=== PATIENT | female | born 1965 | race Caucasian/White ===

== ENCOUNTER → 2019-08-31 16:01 | Outpatient (CLI) | payer OTHER, SELFPAY ==
--- NOTE | ~2019-08-31 | XR_ITS ---
XR_CERV2-3V_CR INDICATION: Cervicalgia TECHNIQUE: 4 views of the cervical spine. FINDINGS: No prior studies for comparison. The cervical spine is visualized to the cervicothoracic junction. There is no prevertebral soft tiss ue swelling, listhesis, or loss of vertebral body height. Intervertebral disc spaces are normal. Th e osseous central canal is patent. No displaced cervical spine fractures are identified. IMPRESSION: 1. No significant osseous abnormality of the cervical spine. Reviewed, dictated and finalized at location A.
== END ==
PROVIDERS: PCP Family Medicine; Visit Provider Physician Assistant
DX: M54.2 Cervicalgia (principal)
CPT/HCPCS: 72040

== ENCOUNTER → 2020-02-23 13:30 | Outpatient (CLI) | payer OTHER, SELFPAY ==
--- NOTE | ~2020-02-23 | XR_ITS ---
XR foot RT 2V DATE: 02/23/2020 13:44 INDICATION: Right foot pain TECHNIQUE: 4 views COMPARISON: None FINDINGS: Mild hallux valgus and bunion deformity. No fracture or dislocation, periosteal reaction or bone destruction. Mild posterior calcaneal enthesopathy. IMPRESSION: Mild posterior calcaneal enthesopathy Mild hallux valgus and bunion deformity Reviewed, dictated and finalized at location A.
== END ==
PROVIDERS: PCP Family Medicine; Visit Provider Physician Assistant
DX: M79.671 Pain in right foot (principal); M77.31 Calcaneal spur, right foot; M20.11 Hallux valgus (acquired), right foot; M21.611 Bunion of right foot
CPT/HCPCS: 73620

== ENCOUNTER 2020-04-10 10:20 | Outpatient (CLI) | payer OTHER, SELFPAY ==
--- NOTE | ~2020-04-10 | MR_ITS ---
EXAMINATION: MR foot RT wo con DATE: 04/10/2020 11:25 INDICATION: Right foot pain TECHNIQUE: Magnetic resonance imaging (MRI) of the right fore/mid foot was performed without intraven ous contrast. Sequences included sagittal T1-weighted FSE, sagittal fluid sensitive FSE STIR, coronal PD-weighted FS FSE, coronal T1-weighted FSE, axial PD-weighted FS FSE, and axial PD-weighted FSE. COMPARISON: Right foot radiographs dated 02/23/2020 FINDINGS: Mild hallux valgus with mild hypertrophic change and edema along the medial head of the first metatar rosalind consistent with bunion formation. Otherwise normal marrow signal with no fracture, reactive edema or pathologic marrow replacing process. Mild osteoarthritis at the first metatarsophalangeal joint. Small amount of fluid at the first-third intermetatarsal bursa which remains within normal limits. 4 x 3 x 2 mm ganglion cyst along the plantar/lateral aspect of the head of the second metatarsal. Physi ologic amount fluid in the joint spaces. No other abnormal fluid collections. The collateral ligament complexes at the metatarsophalangeal and interphalangeal joints as well as the flexor and extensor t endons are normal. Visualized intrinsic musculature of the foot is normal. IMPRESSION: 1. Mild hallux valgus with mild bunion and mild osteoarthritis at the first metatarsophalangeal joint . Reviewed, dictated and finalized at location A. IMPRESSION: 1. Mild hallux valgus with mild bunion and mild osteoarthritis at the first met atarsophalangeal joint.
== END 2020-04-10 10:21 | disposition home or self-care (01) ==
PROVIDERS: PCP Family Medicine; Visit Provider Family Medicine
DX: M79.671 Pain in right foot (principal); M20.11 Hallux valgus (acquired), right foot; M19.071 Primary osteoarthritis, right ankle and foot
CPT/HCPCS: 73718

== ENCOUNTER 2020-07-23 12:19 | Outpatient (CLI) | payer OTHER, SELFPAY ==
--- NOTE | ~2020-07-23 | MMUS_ITS ---
EXAMINATION: MM diagnostic [place] BI w pepe, US breast RT limited HISTORY: Palpable lump in the upper outer quadrant of the right breast. TECHNIQUE: Craniocaudal, mediolateral, and mediolateral oblique 3-D tomosynthesis images of the right breast were performed and synthetic 2-D images were generated. CAD analysis was submitted and interp reted. High resolution limited right breast ultrasound was performed. COMPARISON: 01/20/2019, 11/28/2015, 11/20/2015, 09/28/2014 BREAST PARENCHYMAL COMPOSITION: There are scattered areas of fibroglandular density. FINDINGS: MAMMOGRAPHIC FINDINGS: Left breast: There are stable obscured low density masses in the upper outer quadrant of the breast. There has been no suspicious interval change. No suspicious architectural distortion or calcification are identified. Right breast: There are obscured low density masses in the middle and posterior third of the breast a t the 12:00 location which have an appearance similar to prior mammograms. No definite correlate is i dentified for the reported palpable abnormality of concern. ULTRASOUND: There is no evidence of focal abnormal solid or cystic lesion in the vicinity of the reported palpabl e abnormality of concern. Cysts and clusters of cysts are noted at the 9:00 and 12:00 locations. IMPRESSION: 1. No suspicious mammographic or sonographic correlate is identified for the reported palpable abnorm ality of concern. Further evaluation at this time should be based on clinical assessment. Continued f ollow-up physical examination is recommended. 2. Recommend routine screening mammography in one year. BI-RADS Category 2: Benign finding(s). Reviewed, dictated and finalized at location A. 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 No suspicious mammographic or sonographic correlate is identified for the re ported palpable abnormality of concern. Further evaluation at this time should be based on clinical assessment. Continued follow-up physical examination is re commended. 2. Recommend routine screening mammography in one year. BI-RADS Category 2: Benign finding(s).
== END 2020-07-23 12:20 | disposition home or self-care (01) ==
LOC: ANHIMG 12:22
PROVIDERS: PCP Family Medicine; Visit Provider Physician Assistant
DX: R92.8 Other abnormal and inconclusive findings on diagnostic imaging of breast (principal)
CPT/HCPCS: 76642; 77062; 77066; G0279

== ENCOUNTER 2021-05-05 17:24 | Emergency (ER) | payer OTHER, MEDICAID, SELFPAY ==
--- NOTE | ~2021-05-05 | XR_ITS ---
EXAMINATION: XR chest 2V DATE: 05/05/2021 18:41 INDICATION: Chest pain TECHNIQUE: PA and lateral views of the chest were obtained. COMPARISON: None FINDINGS: The lungs are clear with no focal airspace opacities, pulmonary edema, pleural effusion or pneumothor ax. The cardiomediastinal silhouette is normal. Mild thoracic spondylosis. IMPRESSION: 1. No acute cardiopulmonary disease. Reviewed, dictated and finalized at location A. RN HOSPICE
--- NOTE | 2021-05-05 17:54 | ECG_ITS ---
Measurements Intervals [place] Rate: 69 P: 37 TX: 156 QRS: -3 QRSD: 145 T: 24 QT: 454 QTc: 488 Interpretive Statements SINUS RHYTHM RIGHT BUNDLE BRANCH BLOCK ABNORMAL ECG Electronically Signed On 05-05-2021 20:33:10 PARAMEDIC SUPERVISOR by Dennis Eid D.O.
[2021-05-05 18:28] VITALS: BP 155/87; PULSE 73; RESP 18; TEMP 36.6; O2SAT 100
[2021-05-05 18:46] LABS: Basophils Percent Auto 0.6 % (0.2-1.2); Eosinophils Absolute Auto 0.2 K/mm3 (0-0.3); Eosinophils Percent Auto 4.2 % (0-4.4); Hematocrit 38.4 % (37.0-47.0); Hemoglobin 12.9 g/dL (12.0-15.0); Immature Granulocyte Absolute 0.01 K/mm3 (0.00-0.031); Immature Granulocyte Percent A 0.2 % (0-0.5); Lymphocytes Absolute Auto 1.25 K/mm3 (0.9-3.2); Lymphocytes Percent Auto 23.6 % (18.3-44.2); Mean Corpuscular HGB Conc 33.6 g/dl (32-36); Mean Corpuscular Hemoglobin 30.1 pg (26-34); Mean Corpuscular Volume 89.5 fl (80-100); Mean Platelet Volume 9.1 fl (7.4-10.4); Monocytes Absolute Auto 0.4 K/mm3 (0.1-0.6); Monocytes Percent Auto 8.1 % (2.6-8.5); Neutrophils Absolute Auto 3.4 K/mm3 (1.3-6.7); Neutrophils Percent Auto 63.3 % (45.5-73.1); Platelet Count Result 295 k/mm3 (150-375); Red Blood Count 4.29 M/mm3 (4.2-5.4); Red Cell Distribution Width 13.3 % (11.5-14.5); White Blood Count 5.3 K/mm3 (4.5-10.0)
[2021-05-05 18:56] LABS: Sodium 137 mmol/L (137-145)
[2021-05-05 18:59] LABS: Anion Gap 7 mmol/L (8-16); Blood Urea Nitrogen 23 mg/dL (7-17); Calcium 9.3 mg/dL (8.4-10.2); Carbon Dioxide 30 mmol/L (22-30); Chloride 100 mmol/L (98-107); Estimated CRCL calculation 59 ml/min; Estimated Glomerular Filt Rate > 60; Glucose 97 mg/dL (65-110); Potassium 3.2 mmol/L (3.4-5.0)
[2021-05-05 19:06] LABS: INR 0.9; Prothrombin Time 12.2 Seconds (11.1-14.7)
[2021-05-05 19:07] LABS: Partial Thromboplastin Time 24.7 SECONDS (22.3-36.8)
[2021-05-05 19:09] LABS: Troponin I < 0.012 ng/mL (0.000-0.034)
[2021-05-05 21:40] VITALS: BP 155/87; PULSE 73; RESP 18; TEMP 36.3; O2SAT 100
--- NOTE | 2021-05-05 21:58 | ED.CHESTPAIN ---
HPI - Chest Pain General Chief Complaint: Chest Pain Stated Complaint: cp Time Seen by Provider: 05/05/21 21:38 Source: patient Mode of arrival: ambulatory Limitations: no limitations History of Present Illness HPI narrative: Patient is a 55-year-old female complaining of chest pain, midsternal, intermittent, 6 out of 10, currently 0 out of 10, started 3 days ago. Patient denies any shortness of breath, abdominal pain, nausea, vomiting, diaphoresis, fever or chills. Related Data Home Medications Medication Instructions Recorded Confirmed estradiol 0.0375 mg/24 hr 1 patch TRANSDERM 2XW 08/31/19 02/07/21 semiweekly transdermal patch mecobalamin (vitamin B12) 1,000 1,000 mcg SUBLINGUAL DAILY 02/11/21 mcg disintegrating tablet,sublingual Allergies Allergy/AdvReac Type Severity Reaction Status Date / Time erythromycin base Allergy Unknown Cramping Verified 05/05/21 21:41 of the Muscles Review of Systems Review of Systems: All systems reviewed & are unremarkable except as noted in HPI and below Constitutional: Constitutional: Denies body ache(s), Denies chills, Denies excessive sweating, Denies fatigue, Denies fever(s), Denies headache(s), Denies lethargy, Denies malaise, Denies weakness and Denies weight loss Eyes: Eyes: Denies blurry vision, Denies change in vision and Denies loss of vision ENT: Denies dizziness, Denies ear discharge, Denies headache(s), Denies lip swelling, Denies epistaxis, Denies nasal congestion, Denies neck pain, Denies throat swelling and Denies tongue swelling Cardiovascular: Cardiovascular: Denies diaphoresis, Denies rapid heart rate, Denies edema, Denies irregular heart rhythm, Denies lightheadedness, Denies palpitations, Denies dyspnea and Denies dyspnea on exertion Respiratory: Respiratory: Denies chest congestion, Denies cough, Denies hemoptysis, Denies dyspnea and Denies dyspnea on exertion Gastrointestinal: Gastrointestinal: Denies abdominal pain, Denies melena, Denies hematochezia, Denies diarrhea, Denies nausea, Denies vomiting and Denies hematemesis Musculoskeletal: Musculoskeletal: Denies abnormal gait, Denies deformity, Denies joint swelling, Denies limited range of motion, Denies neck pain and Denies numbness Neurologic: Denies Abnormal speech present, Denies abnormal gait, Denies confusion, Denies dizziness, Denies headache(s), Denies focal weakness, Denies loss of vision, Denies numbness, Denies Other visual disturbances, Denies Sensory deficit (Neuro) and Denies weakness Psychiatric: Psychiatric: Denies confusion, Denies depression, Denies auditory hallucinations, Denies homicidal ideation and Denies suicidal ideation Endocrine: Endocrine: Denies cold intolerance, Denies excessive sweating, Denies fatigue, Denies heat intolerance and Denies palpitations Hematologic/Lymphatic: Hematologic/Lymphatic: Denies easy bleeding and Denies easy bruising Allergic/Immunologic: Allergic/Immunologic: Denies lip swelling, Denies throat swelling and Denies tongue swelling PMFSH Past Medical History Medical History Celiac disease Hx of human papillomavirus infection Prolapse of vaginal cuff after hysterectomy (~01/20/20) Surgical History Surgical History H/O: hysterectomy (~2003) Only uterus removed Family History Family History Mother Family history of obesity, Onset Age: 54 Hypertension, Onset Age: 54 Asthma, Onset Age: 54 Father Acute myocardial infarction, Onset Age: 65 Other Family history of lupus erythematosus Social History Social History Alcohol intake: current Drinks per week: 2 Alcohol use details: doesn't even do 1 drink a week occasionaly Exam Const: General: cooperative, healthy appearing
[2021-05-05 22:50] VITALS: BP 149/93; PULSE 70; RESP 16; O2SAT 99
[2021-05-05 23:04] LABS: Troponin I < 0.012 ng/mL (0.000-0.034)
[2021-05-05] MEDS: POTASSIUM CHLORIDE 20 MEQ TABLET PO (23:45)
[2021-05-05 23:50] VITALS: BP 147/92; PULSE 65; RESP 14; O2SAT 100
== END 2021-05-05 23:55 | disposition home or self-care (01) ==
PROVIDERS: Emergency Medicine; Emergency Provider Emergency Medicine; PCP Family Medicine
DX: R07.89 Other chest pain (principal); K90.0 Celiac disease; I45.10 Unspecified right bundle-branch block
CPT/HCPCS: 36415; 71046; 80048; 84484; 85025; 85610; 85730; 93005; 99284; A9270

== ENCOUNTER → 2021-05-27 16:58 | Outpatient (CLI) | payer OTHER, MEDICAID, SELFPAY ==
--- NOTE | ~2021-05-27 | XR_ITS ---
EXAMINATION: XR foot RT min 3V DATE: 05/27/2021 17:12 INDICATION: Right foot pain TECHNIQUE: Dorsoplantar, lateral, and 2 oblique views of the right foot were obtained. COMPARISON: 02/23/2020 FINDINGS: An os peroneum is noted. There is mild irregularity at the distal margin of the os peroneum with associated increasing heterotopic ossification. Mild osteoarthritis is noted in multiple interp halangeal joints as well as at the first metatarsophalangeal joint. No acute fracture is identified. A posterior calcaneal enthesophyte is noted. IMPRESSION: 1. Mild irregularity at the distal aspect of the os peroneum with associated increasing heterotopic o ssification suggestive of peroneus longus tendon pathology, tendinosis versus tear. Recommend clinica l correlation for tenderness proximal to the base of the fifth metatarsal. Reviewed, dictated and finalized at location A. 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 Mild irregularity at the distal aspect of the os peroneum with associated in creasing heterotopic ossification suggestive of peroneus longus tendon patholog y, tendinosis versus tear. Recommend clinical correlation for tenderness proxim al to the base of the fifth metatarsal.
== END ==
PROVIDERS: PCP Family Medicine; Visit Provider Family Medicine
DX: M19.071 Primary osteoarthritis, right ankle and foot (principal); M79.671 Pain in right foot
CPT/HCPCS: 73630

== ENCOUNTER 2021-11-11 17:21 | Outpatient (CLI) | payer OTHER, MEDICAID, SELFPAY ==
--- NOTE | ~2021-11-11 | MM_ITS ---
EXAMINATION: MM screening [place] BI w pepe HISTORY: Screening mammogram TECHNIQUE: Craniocaudal and mediolateral oblique 3-D tomosynthesis images were obtained and synthetic 2-D images were generated. CAD analysis was submitted and interpreted. COMPARISON: July 23, 2020 diagnostic bilateral mammogram and limited right breast ultrasound January 20, 2019 bilateral screening mammogram November 28, 2015 diagnostic left mammogram and limited left breast ultrasound November 20, 2015 bilateral screening mammogram BREAST PARENCHYMAL COMPOSITION: There are scattered areas of fibroglandular density. FINDINGS: Biopsy marker on the left; history of prior benign left breast biopsy. Stable fibroglandular asymmetry since 11/20/2015. There is a 4.9 x 8.5 mm circumscribed mass in the posterior lower inner left breast. Diagnostic left mammogram and left breast ultrasound examination are recommended. Otherwise there is no evidence of suspicious mass, calcification, or architectural distortion to sugg est malignancy in either breast. There has been no suspicious interval change. IMPRESSION: 1. 4.9 x 8.5 mm mass in posterior lower inner left breast 2. Diagnostic left mammogram and left breast ultrasound examination are recommended BI-RADS Category 0: Incomplete: Needs additional imaging evaluation. Reviewed, dictated and finalized at location A. IMPRESSION: 1. 4.9 x 8.5 mm mass in posterior lower inner left breast 2. Diagnostic left mammogram and left breast ultrasound examination are recomme nded BI-RADS Category 0: Incomplete: Needs additional imaging evaluation.
== END 2021-11-11 17:22 | disposition home or self-care (01) ==
LOC: ANHIMG 17:22
PROVIDERS: PCP Family Medicine; Visit Provider Family Medicine
DX: Z12.31 Encounter for screening mammogram for malignant neoplasm of breast (principal); R92.8 Other abnormal and inconclusive findings on diagnostic imaging of breast
CPT/HCPCS: 77063; 77067

== ENCOUNTER → 2021-11-28 07:45 | Outpatient (CLI) | payer OTHER, MEDICAID, SELFPAY ==
--- NOTE | ~2021-11-28 | MMUS_ITS ---
EXAMINATION: MM diagnostic [place] LT w pepe, US breast LT limited HISTORY: Left breast mass on screening mammogram TECHNIQUE: Additional 3-D tomosynthesis images of the left breast were performed and synthetic 2-D im ages were generated. CAD analysis was submitted and interpreted. High resolution limited left breast ultrasound was performed. COMPARISON: 11/11/2021, 07/23/2020, 01/20/2019, 11/20/2015 FINDINGS: MAMMOGRAPHIC FINDINGS: There is a 9 mm x 4 mm oval, circumscribed, low-density mass in the middle third of the inner breast at the 9:00 location 7 cm from the nipple. ULTRASOUND: There is a 7 mm cyst at the 9:00 location 7 cm from the nipple corresponding to the mammographic find ing in question. There is a 3 mm round, circumscribed, hypoechoic mass with no posterior features or internal vascularity at the 9:00 location 4 cm from the nipple. An 11 mm x 3 mm mass with similar son ographic features is seen at the 9:00 location near the nipple. IMPRESSION: 1. Left breast cyst corresponding to the mammographic finding in question. 2. Recommend 6 month follow-up targeted left breast ultrasound to evaluate incidental sonographically detected masses at the 9:00 location. BI-RADS category 3, probably benign findings. Reviewed, dictated and finalized at location A. IMPRESSION: 1. Left breast cyst corresponding to the mammographic finding in question. 2. Recommend 6 month follow-up targeted left breast ultrasound to evaluate inci dental sonographically detected masses at the 9:00 location. BI-RADS category 3, probably benign findings.
== END ==
PROVIDERS: PCP Family Medicine; Visit Provider Family Medicine
DX: R92.8 Other abnormal and inconclusive findings on diagnostic imaging of breast (principal)
CPT/HCPCS: 76642; 77061; 77065; G0279

== ENCOUNTER 2022-06-09 14:32 | Outpatient (CLI) | payer OTHER, MEDICAID, SELFPAY ==
[2022-06-09 17:42] LABS: Hemoglobin 13.2 g/dL (12.0-15.0); Mean Corpuscular HGB Conc 33.8 g/dl (32-36); Mean Corpuscular Hemoglobin 29.9 pg (26-34); Mean Corpuscular Volume 88.4 fl (80-100); Platelet Count Result 307 k/mm3 (150-375); Red Blood Count 4.41 M/mm3 (4.2-5.4); Red Cell Distribution Width 12.9 % (11.5-14.5); White Blood Count 5.7 K/mm3 (4.5-10.0)
[2022-06-09 20:36] LABS: Iron 90 ug/dL (37-170)
[2022-06-09 20:46] LABS: Percent Iron Saturation 25 % (20-50)
[2022-06-09 21:51] LABS: Folic Acid 4.7 ng/mL (2.76->20)
[2022-06-12 10:59] LABS: Tissue Transglutaminase IgA Ab <1.0 U/mL (<15.0)
[2022-06-12 12:06] LABS: Tissue Transglutaminase IgG Ab <1.0 U/mL (<15.0)
[2022-06-13 14:49] LABS: Vitamin D 1,25 (OH)2 Total 49 pg/mL (18-72); Vitamin D2 1,25 (OH)2 <8 pg/mL; Vitamin D3 1,25 (OH)2 49 pg/mL
== END 2022-06-09 14:33 | disposition home or self-care (01) ==
LOC: ANHGOSHLAB 14:34
PROVIDERS: PCP Family Medicine; Visit Provider Nurse Practitioner
DX: K90.0 Celiac disease (principal)
CPT/HCPCS: 36415; 82607; 82652; 82728; 82746; 83516; 83540; 83550; 85027

== ENCOUNTER 2022-06-19 10:05 | Outpatient (CLI) | payer OTHER, MEDICAID, SELFPAY ==
--- NOTE | ~2022-06-19 | US_ITS ---
US breast LT limited DATE: 06/19/2022 10:38 INDICATION: Six-month follow-up of 9:00 sonographic breast masses reported on 11/28/2021 Limited left breast ultrasound examination TECHNIQUE: High-resolution ultrasound imaging and color flow imaging at 9:00 area COMPARISON: 11/28/2021 Limited left breast ultrasound FINDINGS: At 9:00 4 cm from the nipple there is a stable or slightly diminished 2.2 x 1.7 x 2.6 mm so nolucency without internal vascularity or posterior shadowing, benign in appearance. No other suspicious mass or shadowing is detected. Other lesions reported at 9:00 on 11/28/2021 are no t currently detected IMPRESSION: BI-RADS Category 2: Benign Recommendation: Routine annual mammographic screening Reviewed, dictated and finalized at Location A. Reviewed, dictated and finalized at location A. 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
== END 2022-06-19 10:06 | disposition home or self-care (01) ==
PROVIDERS: PCP Family Medicine; Visit Provider Physician Assistant
DX: N60.02 Solitary cyst of left breast (principal)
CPT/HCPCS: 76642

== ENCOUNTER 2023-03-12 01:46 | Day surgery (SDC) | payer OTHER, MEDICAID, SELFPAY ==
[2023-03-05 11:37] VITALS: BMI 27.3
[2023-03-12 08:45] VITALS: BP 136/76; PULSE 69; RESP 16; TEMP 36.3; O2SAT 99; BMI 27.8
[2023-03-12] MEDS: LACTATED RINGERS 1,000 ML 150 ML IV CONT (09:13)
--- NOTE | 2023-03-12 09:47 | WPDANESEPPF ---
Anes - Initial Pre Proc Eval Procedure: Operation Date: 03/12/23 10:15 Proposed Procedures p Esophagogastroduodenoscopy - Alberto Escamilla MD Date/Time: 03/12/23 09:47 Surgeon: Alberto Escamilla MD Pre Op Diagnosis: Gastro-esophageal reflux disease with esophagitis, Patient Data Age: 57 Gender: F Height: 1.68 m Weight: 78.2 kg Last Vital Signs Temp 97.3 F L 03/12/23 08:45 Pulse 69 03/12/23 08:45 Resp 16 03/12/23 08:45 BP 136/76 03/12/23 08:45 Pulse Ox 99 03/12/23 08:45 O2 Del Method Room Air 03/12/23 08:45 Allergies Allergy/AdvReac Type Severity Reaction Status Date / Time erythromycin base Allergy Unknown Cramping Verified 03/12/23 08:51 of the Muscles Home Medications Medication Instructions Recorded Confirmed Type estradiol 0.0375 mg/24 hr 1 patch transdermal 2XW 08/31/19 03/12/23 History semiweekly transdermal patch cholecalciferol (vitamin D3) 1,250 See Rx Instructions .Route 08/18/22 03/12/23 Rx mcg (50,000 unit) capsule .COMPLEX #12 caps mecobalamin (vitamin B12) 1,000 1,000 mcg PO DAILY 11/12/22 03/12/23 History mcg chewable tablet fluticasone propionate 50 2 spray intranasal DAILY #50 mL 12/17/22 03/12/23 Rx mcg/actuation nasal spray,suspension (Flonase Allergy Relief) bupropion HCl 75 mg tablet 75 mg PO BID #60 tabs 12/18/22 03/12/23 Rx triamterene 37.5 1 cap PO BID #180 caps 01/21/23 03/12/23 Rx mg-hydrochlorothiazide 25 mg capsule atorvastatin 10 mg tablet 10 mg PO DAILY #90 tabs 02/09/23 03/12/23 Rx levocetirizine 5 mg tablet 5 mg PO DAILY 03/05/23 03/12/23 History Patient hx anesthesia problems: none Family hx anesthesia problems: none Results Review: All pre-operative results and documents have been reviewed as part of the pre-operative evaluation. [facility] Past Medical History Medical History (Updated 02/25/23 @ 15:24 by Poly Manzanares APRN) GERD with esophagitis History of duodenal ulcer Hx of human papillomavirus infection Knee instability Prolapse of vaginal cuff after hysterectomy (~01/20/20) Sciatica Surgical History Surgical History H/O LEEP H/O: hysterectomy (~2003) Only uterus removed Family History Family History Mother Family history of obesity, Onset Age: 54 Hypertension, Onset Age: 54 Asthma, Onset Age: 54 Father Acute myocardial infarction, Onset Age: 65 Other Family history of lupus erythematosus Social History Social History Smoking status: Never smoker Alcohol intake: current Drinks per week: 2 Alcohol use details: minimal social use Substance use: never Substance use type: does not use Lack of Transportation: No Lack of Food: Never True Current Housing: I Have Housing Concerned About Future Housing: No Difficulty Paying Gas/Electric Bills: No Difficulty Paying for Meds: No Currently Unemployed: No Education: Associate Degree Difficulty w/ Childcare or Family Care: No Living arrangements: with family Spiritual care concerns: No Anes - Eval Final PreProcedure Day of Procedure 03/12/23 09:47 Patient weight: normal Heart: regular rate and rhythm Lungs: clear to auscultation Airway: Mallampati scale class II Neurological: alert and oriented Last oral intake: >/= 8 hours ASA classification: II Emergent: no Anesthetic plan: proceed Anesthesia type and monitoring: general GIVS and standard monitoring Results Review: All pre-operative results and documents have been reviewed as part of the pre-operative evaluation. Informed Consent: The patient's anesthetic plan and its attendant risks and benefits were discussed with the patient/family/POA. Questions were solicited and answers provided to the satisfaction of the patient
--- NOTE | 2023-03-12 09:55 | WPDHPUPDATE1 ---
History and Physical Update Update Date/Time: 03/12/23 09:55 History and Physical has been reviewed, including an updated exam of the patient. There are NO changes in the patient's condition. Risks, benefits, and alternatives have been discussed and questions answered. Patient agrees to proceed with procedure.
[2023-03-12 10:07] VITALS: BP 95/59; PULSE 72; RESP 16; O2SAT 97
[2023-03-12 10:17] VITALS: BP 97/57; PULSE 70; RESP 20; O2SAT 100
[2023-03-12 10:27] VITALS: BP 107/69; PULSE 72; RESP 20; O2SAT 100
== END 2023-03-12 10:32 | disposition home or self-care (01) ==
PROVIDERS: PCP Family Medicine; Visit Provider Internal Medicine Gastroenterology
PROC: 0DJ08ZZ Inspection of Upper Intestinal Tract, Via Natural or Artificial Opening Endoscopic (ICD-10-PCS; CPT 43235; principal; 2023-03-12 10:15)
DX: K90.0 Celiac disease (principal); K21.00 Gastro-esophageal reflux disease with esophagitis, without bleeding; E53.8 Deficiency of other specified B group vitamins; E55.9 Vitamin D deficiency, unspecified; E78.5 Hyperlipidemia, unspecified
CPT/HCPCS: 43239; 88305; J2704; J7120

== ENCOUNTER 2023-05-20 15:50 | Outpatient (CLI) | payer OTHER, MEDICAID, SELFPAY ==
--- NOTE | ~2023-05-20 | MM_ITS ---
EXAMINATION: MM screening [place] BI w pepe HISTORY: Screening mammogram TECHNIQUE: Craniocaudal and mediolateral oblique 3-D tomosynthesis images were obtained and synthetic 2-D images were generated. CAD analysis was submitted and interpreted. COMPARISON: 06/19/2022 Limited left breast ultrasound examination 11/28/2021 diagnostic left mammogram and limited left breast ultrasound 11/07/2021 bilateral screening mammogram 07/23/2020 diagnostic bilateral mammogram and limited right breast ultrasound 01/20/2019 bilateral screening mammogram BREAST PARENCHYMAL COMPOSITION: There are scattered areas of fibroglandular density. FINDINGS: There is a biopsy marker on the left; history of prior benign left breast biopsy. There is no evidence of suspicious mass, calcification, or architectural distortion to suggest malignancy in e ither breast. There has been no suspicious interval change. IMPRESSION: 1. No mammographic evidence of malignancy. 2. Recommend routine screening mammography in one year. BI-RADS Category 1: Negative Reviewed, dictated and finalized at location A. IRATORY TECH
== END 2023-05-20 15:51 | disposition home or self-care (01) ==
LOC: ANHIMG 15:56
PROVIDERS: PCP Family Medicine; Visit Provider Family Medicine
DX: Z12.31 Encounter for screening mammogram for malignant neoplasm of breast (principal)
CPT/HCPCS: 77063; 77067

== ENCOUNTER 2023-06-11 08:13 | Outpatient (CLI) | payer OTHER, MEDICAID, SELFPAY ==
[2023-06-11 15:03] LABS: Basophils Percent Auto 0.5 % (0.2-1.2); Eosinophils Absolute Auto 0.2 K/mm3 (0-0.3); Eosinophils Percent Auto 4.4 % (0-4.4); Hematocrit 42.2 % (37.0-47.0); Hemoglobin 13.6 g/dL (12.0-15.0); Immature Granulocyte Absolute 0.01 K/mm3 (0.00-0.031); Immature Granulocyte Percent A 0.2 % (0-0.5); Lymphocytes Absolute Auto 0.56 K/mm3 (0.9-3.2); Lymphocytes Percent Auto 12.9 % (18.3-44.2); Mean Corpuscular HGB Conc 32.2 g/dl (32-36); Mean Corpuscular Hemoglobin 29.6 pg (26-34); Mean Corpuscular Volume 91.7 fl (80-100); Mean Platelet Volume 9.8 fl (7.4-10.4); Monocytes Absolute Auto 0.3 K/mm3 (0.1-0.6); Monocytes Percent Auto 7.4 % (2.6-8.5); Neutrophils Absolute Auto 3.3 K/mm3 (1.3-6.7); Neutrophils Percent Auto 74.6 % (45.5-73.1); Platelet Count Result 275 k/mm3 (150-375); Red Cell Distribution Width 13.1 % (11.5-14.5); White Blood Count 4.4 K/mm3 (4.5-10.0)
[2023-06-11 18:22] LABS: Anion Gap 7 mmol/L (8-16); Blood Urea Nitrogen 21 mg/dL (7-17); Calcium 9.7 mg/dL (8.4-10.2); Carbon Dioxide 29 mmol/L (22-30); Chloride 102 mmol/L (98-107); Cholesterol 193 mg/dL (0-200); Estimated Glomerular Filt Rate 47; Glucose 77 mg/dL (65-110); HDL Direct 37 mg/dL; Potassium 3.5 mmol/L (3.4-5.0); Sodium 138 mmol/L (137-145); Triglycerides 69 mg/dL (<150)
[2023-06-11 18:32] LABS: LDL Cholesterol Direct 114 mg/dL
== END 2023-06-11 08:14 | disposition home or self-care (01) ==
LOC: ANHGOSHLAB 08:15
PROVIDERS: PCP Family Medicine; Visit Provider Physician Assistant
DX: E78.5 Hyperlipidemia, unspecified (principal); R79.89 Other specified abnormal findings of blood chemistry; D72.819 Decreased white blood cell count, unspecified
CPT/HCPCS: 36415; 80048; 80061; 85025

== ENCOUNTER 2023-06-29 15:41 | Outpatient (CLI) | payer OTHER, MEDICAID, SELFPAY ==
[2023-06-29 15:59] LABS: Basophils Percent Auto 0.4 % (0.2-1.2); Eosinophils Absolute Auto 0.2 K/mm3 (0-0.3); Eosinophils Percent Auto 2.6 % (0-4.4); Hematocrit 39.4 % (37.0-47.0); Hemoglobin 13.2 g/dL (12.0-15.0); Immature Granulocyte Absolute 0.02 K/mm3 (0.00-0.031); Immature Granulocyte Percent A 0.4 % (0-0.5); Lymphocytes Absolute Auto 0.72 K/mm3 (0.9-3.2); Lymphocytes Percent Auto 12.7 % (18.3-44.2); Mean Corpuscular HGB Conc 33.5 g/dl (32-36); Mean Corpuscular Hemoglobin 29.9 pg (26-34); Mean Corpuscular Volume 89.1 fl (80-100); Monocytes Absolute Auto 0.5 K/mm3 (0.1-0.6); Monocytes Percent Auto 8.6 % (2.6-8.5); Neutrophils Absolute Auto 4.3 K/mm3 (1.3-6.7); Neutrophils Percent Auto 75.3 % (45.5-73.1); Platelet Count Result 286 k/mm3 (150-375); Red Blood Count 4.42 M/mm3 (4.2-5.4); Red Cell Distribution Width 12.8 % (11.5-14.5); White Blood Count 5.7 K/mm3 (4.5-10.0)
[2023-06-29 16:47] LABS: Iron 54 ug/dL (37-170)
[2023-06-29 16:52] LABS: Alanine Aminotransferase 31 U/L (6-35); Albumin Level 4.2 g/dL (3.5-5.1); Alkaline Phosphatase 76 U/L (38-126); Anion Gap 8 mmol/L (8-16); Aspartate Amino Transferase 27 U/L (14-36); Bilirubin,Total 0.5 mg/dL (0.2-1.3); Blood Urea Nitrogen 21 mg/dL (7-17); Calcium 9.4 mg/dL (8.4-10.2); Carbon Dioxide 33 mmol/L (22-30); Chloride 96 mmol/L (98-107); Estimated Glomerular Filt Rate 36; Glucose 88 mg/dL (65-110); Potassium 3.3 mmol/L (3.4-5.0); Sodium 137 mmol/L (137-145)
[2023-06-29 17:04] LABS: Percent Iron Saturation 16 % (20-50)
[2023-06-29 18:18] LABS: Folic Acid 4.8 ng/mL (2.76->20); Vitamin B12 > 1000.0 pg/mL (239-931)
[2023-07-03 08:27] LABS: Methylmalonic Acid 162 nmol/L (87-318)
[2023-07-14 09:37] LABS: Soluble Transferrin Receptor 0.92 mg/L (0.76-1.76)
== END 2023-06-29 15:42 | disposition home or self-care (01) ==
LOC: ANHLAB 15:44
PROVIDERS: Nurse Practitioner Family; PCP Family Medicine; Visit Provider Internal Medicine Hematology & Oncology
DX: D72.819 Decreased white blood cell count, unspecified (principal); D50.9 Iron deficiency anemia, unspecified; E53.8 Deficiency of other specified B group vitamins; D72.810 Lymphocytopenia
CPT/HCPCS: 36415; 80053; 82607; 82728; 82746; 83540; 83550; 83921; 84238; 85025; 86038

== ENCOUNTER 2023-07-16 07:28 | Outpatient (CLI) | payer OTHER, MEDICAID, SELFPAY ==
--- NOTE | ~2023-07-16 | US_ITS ---
US abdomen complete EXAMINATION: US Abdomen Complete INDICATION: Leukopenia PROCEDURE: Realtime High Resolution abdomen ultrasound. COMPARISON: No prior studies for comparison FINDINGS: Gallbladder within normal limits. No gallstones, pericholecystic fluid, gallbladder wall t hickening or biliary dilatation. Common bile duct measures 4 mm. Liver echotexture within normal limits without focal mass. Pancreas within normal limits. Pancreati c tail is obscured by bowel gas. Spleen is unremarkeable. Renal echotexture is within normal limits bilaterally without hydronephrosis, contour deforming mass or renal stone. Right kidney measures 9.6 cm. Left kidney measures 9.3 cm. Visualized aspects of the aorta and IVC are within normal limits. Portal vein is patent. No sonograph ic Torres's sign indicated by the technologist. IMPRESSION: 1: Normal abdominal ultrasound. Reviewed, dictated and finalized at location B. 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
== END 2023-07-16 07:29 | disposition home or self-care (01) ==
LOC: ANHIMG 07:32
PROVIDERS: PCP Family Medicine; Visit Provider Internal Medicine Hematology & Oncology
DX: D72.819 Decreased white blood cell count, unspecified (principal)
CPT/HCPCS: 76700

== ENCOUNTER 2023-09-14 17:27 | Emergency (ER) | payer OTHER, SELFPAY ==
[2023-09-14] VITALS (26 sets, daily range): BP systolic 122–157; BP diastolic 75–105; PULSE 73–100; RESP 13–20; TEMP 36.4–36.7; O2SAT 97–100
[2023-09-14] MEDS: methylPREDNISolone SOD SUCC 125 MG VIAL IV PUSH (17:41)
[2023-09-14] MEDS: diphenhydrAMINE HCl INJ 50 MG/ML VIAL 25 MG IV PUSH ×2 (17:41→18:23)
--- NOTE | 2023-09-14 17:53 | ED.ALLEREA ---
HPI - Allergic Reaction General Chief complaint: Allergic Reaction <Jason Freeman MD - Last Filed: 09/20/23 06:55> Stated complaint: allergic reation <Jason Freeman MD - Last Filed: 09/20/23 06:55> Time Seen by Provider: 09/14/23 17:31 <Jason Freeman MD - Last Filed: 09/20/23 06:55> Source: patient <Jason Freeman MD - Last Filed: 09/20/23 06:55> Mode of arrival: ambulatory <Jason Freeman MD - Last Filed: 09/20/23 06:55> History of Present Illness HPI narrative: 58-year-old with history of hyperlipidemia, allergies she has it again and having allergic reaction. Patient state shes says she took allergy shot around 3 down some after she is having diffuse itching and trouble breathing. Denies any chest pain <Jason Freeman MD - Last Filed: 09/20/23 06:55> MD complaint: allergic reaction <Jason Freeman MD - Last Filed: 09/20/23 06:55> Onset (ago): hour(s) (1) <Jason Freeman MD - Last Filed: 09/20/23 06:55> Exposure: medication <Jason Freeman MD - Last Filed: 09/20/23 06:55> Symptoms: rash, itching and difficulty breathing <Jason Freeman MD - Last Filed: 09/20/23 06:55> Severity: moderate <Jason Freeman MD - Last Filed: 09/20/23 06:55> Treatment prior to arrival: none <Jason Freeman MD - Last Filed: 09/20/23 06:55> Previous Allergic Reaction History: none <MD Elizabeth Llanes Last Filed: 09/20/23 06:55> Related Data Home medications: Home Medications Medication Instructions Recorded Confirmed estradiol 0.0375 mg/24 hr 1 patch transdermal 2XW 08/31/19 06/11/23 semiweekly transdermal patch mecobalamin (vitamin B12) 1,000 1,000 mcg PO DAILY 11/12/22 06/11/23 mcg chewable tablet <Jason Freeman MD - Last Filed: 09/20/23 06:55> Allergies/adverse reactions: Allergies Allergy/AdvReac Type Severity Reaction Status Date / Time erythromycin base Allergy Unknown Cramping Verified 06/11/23 07:36 of the Muscles <Jason Freeman MD - Last Filed: 09/20/23 06:55> Review of Systems Review of Systems: All systems reviewed & are unremarkable except as noted in HPI and below <Jason Freeman MD - Last Filed: 09/20/23 06:55> Constitutional: Constitutional: Reports no additional constitutional complaints <Jason Freeman MD - Last Filed: 09/20/23 06:55> Eyes: Eyes: Reports no additional eye complaints <Jason Freeman MD - Last Filed: 09/20/23 06:55> ENT: Reports system reviewed and no additional complaints, except as documented <Jason Freeman MD - Last Filed: 09/20/23 06:55> Cardiovascular: Cardiovascular: Reports no additional cardiovascular complaints <Jason Freeman MD - Last Filed: 09/20/23 06:55> Respiratory: Respiratory: Reports as per HPI <Jason Freeman MD - Last Filed: 09/20/23 06:55> Gastrointestinal: Gastrointestinal: Reports no additional gastrointestinal complaints <Jason Freeman MD - Last Filed: 09/20/23 06:55> Genitourinary: Genitourinary: Reports no additional female genitourinary complaints <Jason Freeman MD - Last Filed: 09/20/23 06:55> Musculoskeletal: Musculoskeletal: Reports no additional musculoskeletal complaints <Jason Freeman MD - Last Filed: 09/20/23 06:55> Neurologic: Reports system reviewed and no additional complaints, except as documented <Jason Freeman MD - Last Filed: 09/20/23 06:55> Psychiatric: Psychiatric: Reports no additional psychiatric complaints <Jason Freeman MD - Last Filed: 09/20/23 06:55> PMFSH Past Medical History Medical History: Medical History GERD with esophagitis History of duodenal ulcer Hx of human papillomavirus infection Knee instability 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
[2023-09-14] MEDS: EPINEPHrine HCL INJ 1 MG/ML AMPUL 0.3 MG IM (20:01)
== END 2023-09-14 23:14 | disposition home or self-care (01) ==
PROVIDERS: Emergency Provider Family Medicine; PCP Family Medicine
DX: T78.40XA Allergy, unspecified, initial encounter (principal); K21.9 Gastro-esophageal reflux disease without esophagitis; E78.5 Hyperlipidemia, unspecified
CPT/HCPCS: 96372; 96374; 96375; 96376; 99284; J0171; J1200; J2930

== ENCOUNTER 2023-10-19 08:03 | Outpatient (CLI) | payer OTHER, SELFPAY ==
[2023-10-19 08:29] LABS: Basophils Percent Auto 0.8 % (0.2-1.2); Eosinophils Absolute Auto 0.1 K/mm3 (0-0.3); Eosinophils Percent Auto 2.7 % (0-4.4); Hematocrit 41.9 % (37.0-47.0); Hemoglobin 14.1 g/dL (12.0-15.0); Immature Granulocyte Absolute 0.02 K/mm3 (0.00-0.031); Immature Granulocyte Percent A 0.4 % (0-0.5); Lymphocytes Absolute Auto 0.82 K/mm3 (0.9-3.2); Lymphocytes Percent Auto 16.8 % (18.3-44.2); Mean Corpuscular HGB Conc 33.7 g/dl (32-36); Mean Corpuscular Hemoglobin 30.4 pg (26-34); Mean Corpuscular Volume 90.3 fl (80-100); Mean Platelet Volume 9.1 fl (7.4-10.4); Monocytes Absolute Auto 0.4 K/mm3 (0.1-0.6); Monocytes Percent Auto 7.4 % (2.6-8.5); Neutrophils Absolute Auto 3.5 K/mm3 (1.3-6.7); Neutrophils Percent Auto 71.9 % (45.5-73.1); Platelet Count Result 283 k/mm3 (150-375); Red Blood Count 4.64 M/mm3 (4.2-5.4); Red Cell Distribution Width 13.2 % (11.5-14.5); White Blood Count 4.9 K/mm3 (4.5-10.0)
[2023-10-19 10:35] LABS: Iron 77 ug/dL (37-170)
[2023-10-19 10:37] LABS: Anion Gap 6 mmol/L (4-12); Blood Urea Nitrogen 25 mg/dL (7-17); Calcium 9.8 mg/dL (8.4-10.2); Carbon Dioxide 29 mmol/L (22-30); Chloride 106 mmol/L (98-107); Estimated Glomerular Filt Rate 57; Glucose 96 mg/dL (65-110); Potassium 3.8 mmol/L (3.4-5.0); Sodium 141 mmol/L (137-145)
[2023-10-19 10:44] LABS: Percent Iron Saturation 24 % (20-50)
[2023-10-19 11:42] LABS: Folic Acid 9.8 ng/mL (2.76->20)
== END 2023-10-19 08:04 | disposition home or self-care (01) ==
LOC: ANHLAB 08:12
PROVIDERS: Nurse Practitioner Family; PCP Family Medicine; Visit Provider Internal Medicine Hematology & Oncology
DX: D72.819 Decreased white blood cell count, unspecified (principal); D50.9 Iron deficiency anemia, unspecified
CPT/HCPCS: 36415; 80048; 82607; 82728; 82746; 83540; 83550; 85025

== ENCOUNTER 2023-12-17 12:49 | Outpatient (CLI) | payer OTHER, SELFPAY | END 2023-12-17 12:50 | disposition home or self-care (01) | LOC: ANHAUDASC 12:51 | PROVIDERS: PCP Family Medicine; Visit Provider Family Medicine | DX: H91.90 Unspecified hearing loss, unspecified ear (principal) | CPT/HCPCS: 92557; 92567 ==

== ENCOUNTER 2024-02-09 15:00 | Outpatient (CLI) | payer OTHER, SELFPAY ==
[2024-02-09 15:14] LABS: Basophils Percent Auto 0.6 % (0.2-1.2); Eosinophils Absolute Auto 0.2 K/mm3 (0-0.3); Eosinophils Percent Auto 3.5 % (0-4.4); Hematocrit 42.2 % (37.0-47.0); Hemoglobin 14.1 g/dL (12.0-15.0); Immature Granulocyte Absolute 0.01 K/mm3 (0.00-0.031); Immature Granulocyte Percent A 0.2 % (0-0.5); Lymphocytes Absolute Auto 0.96 K/mm3 (0.9-3.2); Lymphocytes Percent Auto 19.8 % (18.3-44.2); Mean Corpuscular HGB Conc 33.4 g/dl (32-36); Mean Corpuscular Hemoglobin 30.5 pg (26-34); Mean Corpuscular Volume 91.1 fl (80-100); Mean Platelet Volume 9.4 fl (7.4-10.4); Monocytes Absolute Auto 0.4 K/mm3 (0.1-0.6); Monocytes Percent Auto 8.7 % (2.6-8.5); Neutrophils Absolute Auto 3.3 K/mm3 (1.3-6.7); Neutrophils Percent Auto 67.2 % (45.5-73.1); Platelet Count Result 296 k/mm3 (150-375); Red Blood Count 4.63 M/mm3 (4.2-5.4); Red Cell Distribution Width 12.9 % (11.5-14.5); White Blood Count 4.9 K/mm3 (4.5-10.0)
[2024-02-09 15:18] LABS: Blood Urea Nitrogen 21 mg/dL (8-26); Carbon Dioxide 30 mmol/L (22-30); Chloride 97 mmol/L (98-109); Estimated Glomerular Filt Rate 46; Glucose 85 mg/dL (70-105); Ionized Calcium (POC) 1.21 mmol/L (1.11-1.31); Potassium 3.5 mmol/L (3.5-4.9); Sodium 139 mmol/L (138-146)
== END 2024-02-09 15:01 | disposition home or self-care (01) ==
LOC: ANHLAB 15:01
PROVIDERS: PCP Family Medicine; Visit Provider Nurse Practitioner Family
DX: D72.819 Decreased white blood cell count, unspecified (principal)
CPT/HCPCS: 36415; 80047; 85025

== ENCOUNTER 2024-04-04 09:35 | Outpatient (CLI) | payer OTHER, SELFPAY ==
[2024-04-04 19:27] LABS: Basophils Percent Auto 0.4 % (0.2-1.2); Eosinophils Absolute Auto 0.2 K/mm3 (0-0.3); Eosinophils Percent Auto 4.5 % (0-4.4); Hematocrit 41.1 % (37.0-47.0); Hemoglobin 13.8 g/dL (12.0-15.0); Immature Granulocyte Absolute 0.01 K/mm3 (0.00-0.031); Immature Granulocyte Percent A 0.2 % (0-0.5); Lymphocytes Absolute Auto 0.65 K/mm3 (0.9-3.2); Lymphocytes Percent Auto 12.7 % (18.3-44.2); Mean Corpuscular HGB Conc 33.6 g/dl (32-36); Mean Corpuscular Hemoglobin 31.4 pg (26-34); Mean Corpuscular Volume 93.4 fl (80-100); Mean Platelet Volume 10.2 fl (7.4-10.4); Monocytes Absolute Auto 0.4 K/mm3 (0.1-0.6); Monocytes Percent Auto 7.6 % (2.6-8.5); Neutrophils Absolute Auto 3.8 K/mm3 (1.3-6.7); Neutrophils Percent Auto 74.6 % (45.5-73.1); Platelet Count Result 264 k/mm3 (150-375); Red Cell Distribution Width 13.1 % (11.5-14.5); White Blood Count 5.1 K/mm3 (4.5-10.0)
[2024-04-04 19:41] LABS: Alanine Aminotransferase 47 U/L (6-35); Albumin Level 4.2 g/dL (3.5-5.1); Alkaline Phosphatase 69 U/L (38-126); Anion Gap 6 mmol/L (4-12); Aspartate Amino Transferase 46 U/L (14-36); Bilirubin,Total 0.4 mg/dL (0.2-1.3); Blood Urea Nitrogen 22 mg/dL (7-17); Calcium 9.2 mg/dL (8.4-10.2); Carbon Dioxide 32 mmol/L (22-30); Chloride 100 mmol/L (98-107); Cholesterol 144 mg/dL (0-200); Estimated Glomerular Filt Rate > 60; Glucose 86 mg/dL (65-110); HDL Direct 38 mg/dL; Potassium 3.6 mmol/L (3.4-5.0); Sodium 138 mmol/L (137-145); Triglycerides 65 mg/dL (<150)
[2024-04-04 19:51] LABS: LDL Cholesterol Direct 73 mg/dL
[2024-04-04 20:39] LABS: Vitamin B12 > 1000.0 pg/mL (239-931)
== END 2024-04-04 09:36 | disposition home or self-care (01) ==
LOC: ANHGOSHLAB 09:37
PROVIDERS: PCP Family Medicine; Visit Provider Family Medicine
DX: Z00.00 Encounter for general adult medical examination without abnormal findings (principal); K90.0 Celiac disease; E78.2 Mixed hyperlipidemia
CPT/HCPCS: 36415; 80053; 80061; 82306; 82607; 82728; 85025

== ENCOUNTER 2024-08-14 15:19 | Outpatient (CLI) | payer OTHER, SELFPAY ==
[2024-08-14 15:31] LABS: Basophils Percent Auto 0.4 % (0.2-1.2); Eosinophils Absolute Auto 0.2 K/mm3 (0-0.3); Eosinophils Percent Auto 3.1 % (0-4.4); Hemoglobin 12.7 g/dL (12.0-15.0); Immature Granulocyte Absolute 0.02 K/mm3 (0.00-0.031); Immature Granulocyte Percent A 0.4 % (0-0.5); Lymphocytes Absolute Auto 0.99 K/mm3 (0.9-3.2); Lymphocytes Percent Auto 20.2 % (18.3-44.2); Mean Corpuscular HGB Conc 33.4 g/dl (32-36); Mean Corpuscular Hemoglobin 30.5 pg (26-34); Mean Corpuscular Volume 91.1 fl (80-100); Mean Platelet Volume 9.2 fl (7.4-10.4); Monocytes Absolute Auto 0.4 K/mm3 (0.1-0.6); Neutrophils Absolute Auto 3.3 K/mm3 (1.3-6.7); Neutrophils Percent Auto 66.9 % (45.5-73.1); Platelet Count Result 311 k/mm3 (150-375); Red Blood Count 4.17 M/mm3 (4.2-5.4); Red Cell Distribution Width 12.7 % (11.5-14.5); White Blood Count 4.9 K/mm3 (4.5-10.0)
[2024-08-14 15:34] LABS: Blood Urea Nitrogen 25 mg/dL (8-26); Carbon Dioxide 28 mmol/L (22-30); Chloride 101 mmol/L (98-109); Estimated Glomerular Filt Rate 42; Glucose 87 mg/dL (70-105); Ionized Calcium (POC) 1.23 mmol/L (1.11-1.31); Potassium 3.5 mmol/L (3.5-4.9); Sodium 140 mmol/L (138-146)
--- OUTSIDE RECORDS SUMMARY | 2024-08-14 17:54 | XMS_ITS | Clinical Summary ---
Author Organization [facility] Address [address] [place] [address] Care Team Providers Care Personal Care Attendant Name Role Phone Sandi Arvizu MD Unavailable [phone] Tammy Waite MD Primary Care Provider + Allergies Active Allergy Reactions Criticality Noted Date Comments Erythromycin Diarrhea,Stomach upset Low 12/29/2019 Medications triamterene-hyd roCHLOROthiazid e (triamterene-hy droCHLOROthiazi de) 37.5-25 mg per tablet/capsuleI ndications:swel ling Take 2 tablet/capsule by mouth nightly Active UNABLE TO FINDIndications :supplement Take 6 each by mouth 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 Super Collagen Active cholecalciferol (VITAMIN D-3) 50,000 unit capsuleIndicati ons:Vitamin D Deficiency Take 1 capsule (50,000 Units total) by mouth once a week 1 Active cyanocobalamin (Vitamin B-12) 1,000 mcg tabletIndicatio ns:Prevention of Vitamin B12 Deficiency Take 1 tablet (1,000 mcg total) by mouth daily Active estradioL (CLIMARA) 0.1 mg/24 hrIndications:A trophic Vaginitis associated with Menopause Place 1 patch on the skin once a week 4 patch 2 3 Active atorvastatin (LIPITOR) 10 mg tablet 10 MG ORALLY DAILY 3 Active montelukast (SINGULAIR) 10 mg tablet Take 1 tablet (10 mg total) by mouth daily 30 tablet 11 4 09/17/19 25 Active cetirizine (ZyrTEC) 10 mg tablet Take 1 tablet (10 mg total) by mouth 2 (two) times a day 60 tablet 11 4 Active cetirizine (ZyrTEC) 10 mg tablet Take 1 tablet (10 mg total) by mouth daily for 1 day 1 tablet 4 Active albuterol HFA (PROVENTIL HFA,VENTOLIN HFA,PROAIR HFA) 90 mcg/actuation inhaler Inhale 2 puffs every 4 (four) hours as needed for wheezing 1 each 3 5 Active Active Problems Problem Noted Date Diagnosed Date Menopausal symptoms 02/12/2023 Overview (02/12/2023): - Patient currently on climara patch - Patient will try self-weaning - Rx provided per patient request Seasonal allergic rhinitis due to pollen 023 Allergic rhinitis due to dust mite 11/05/2022 Allergic rhinitis due to animal (cat) (dog) hair and dander 11/05/2022 Gluten-sensitive enteropathy 11/27/2020 Assessment & Plan (11/27/2020 7:19 PM CDT): Patient had diarrhea and abdominal pain. Elevated tTG (250). Duodenal mucosa inflammation+ Doing better since she started on gluten free diet. HLA DQ 2/8 pending. Advised to continue gluten free diet. Referred to dietitian. Irritable bowel syndrome with constipation and d iarrhea 10/14/2020 Overview (10/14/2020): Added automatically from request for surgery [id number] Assessment & Plan (11/27/2020 7:20 PM CDT): Doing better since being on gluten free diet. Stopped taking Nortriprtyline. Advised to continue probiotic. Irritable bowel syndrome wit h both constipation and diarrhea 09/27/2020 Assessment & Plan (09/27/2020 11:16 AM CDT): The patient complains of moderately severe bloating, chronic constipation with alternating diarrhea. Symptoms consistent with IBS. She was counseled about avoidance of excessive dairy products and also given patient educational material as regards diet factors that aggravate bloating. Linzess 72 mcg daily is prescribed. Samples were also provided for trial as before she feels the prescription. Nortriptyline 10 mg HS is recommended. Total time spent for the visit was 45 minutes more than 50% of the time was spent on counseling about the nature of the illness and diet recommendations. 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 Risks, benefits, alternatives discussed. -01/23/20: uncomplicated laser ablation of posterior vaginal wall for VAIN3 -02/07/20: meeting all post-op milestones. Counseled patient on importance of regular follow-up. Will schedule follow up appointment in colpo clinic in 6 months. -08/09/20: Vaginal pap NILM. Clinical exam without concerning lesions. -02/07/21: Pap w/ ASC-h/LSIL/HRHPV+ -03/14/21: Colpo with overall low-grade impression. Biopsy obtained at left aspect of cuff. Path: HSIL/VAIN2-3. -04/01/21: Left, mid vaginal LEEP w/ VAIN1 -04/18/21: LEEP site healing well -02/06/22: Doing well today, no concerns. Exam with 2cm polypoid lesion at 9 o'clock position of distal vagina, c/w redundant vaginal tissue vs. vaginal cyst. 1 year vaginal pap co-test collected. Polypoid tissue also swabbed with cytobrush. - 02/2022: LSIL-Atypical squamous cells, HR HPV+ - Clinic visit 02/12/2023: exam normal, vaginal pap collected. Plan: - follow up co test - if ASC-H, HSIL, AGC, recommend colposcopy Encounters Date Type Department Care Team Description 07/25/2024 3:10 PM MANAGER TRAINEE Clinical Support [facility] [address] [place] [phone] Allergic rhinitis due to animal (cat) (dog) hair and dander; Allergic rhinitis due to dust mite; Seasonal allergic rhinitis due to pollen 06/28/2024 2:45 PM MANAGER TRAINEE Office Visit [facility] [address] [place] [phone] Dy, Deann Magallanes MD Allergic rhinitis due to dust mite (Primary Dx); Seasonal allergic rhinitis due to pollen; Allergic rhinitis due to animal (cat) (dog) hair and dander; Intermittent asthma without complication, unspecified asthma severity; Facial dermatitis 06/28/2024 2:30 PM MANAGER TRAINEE Clinical Support [facility] [address] [place] [phone] Allergic rhinitis due to animal (cat) (dog) hair and dander; Allergic rhinitis due to dust mite; Seasonal allergic rhinitis due to pollen 06/06/2024 3:10 PM MANAGER TRAINEE Clinical Support [facility] [address] [place] [phone] Allergic rhinitis due to animal (cat) (dog) hair and dander; Allergic rhinitis due to dust mite; Seasonal allergic rhinitis due to pollen 05/30/2024 3:10 PM MANAGER TRAINEE Clinical Support [facility] [address] [place] [phone] Allergic rhinitis due to animal (cat) (dog) hair and dander; Allergic rhinitis due to dust mite; Seasonal allergic rhinitis due to pollen from Last 3 Months Surgical History Surgery Date Site/Laterality Comments CRYOTHERAPY 06/21/1988 - 06/20/1989 Cervix HYSTERECTOMY 06/21/2003 - 06/20/2004 Vaginal ORAL SURGERY LASER ABLATION 01/20/2020 - 02/19/2020 posterior vaginal wall VIN3 COLONOSCOPY 09/03/2020 1st screening UPPER GASTROINTESTINAL ENDOSCOPY 10/21/2020 CERVICAL BIOPSY W/ LOOP ELECTRODE EXCISION 02/19/2022 - 03/20/2022 Medical History Medical History Date Comments Abnormal Pap smear of cervix Asthma Migraine Celiac disease 2020 Drug allergy Family History Medical History Relation Name Comments Sudden Cardiac Father Breast cancer Father's Sister Hypertension Mother Anesthesia problems Neg Hx Relation Name Status Comments Father Father's Sister Mother Social History Tobacco Use Types Packs/Day Years Used Date Smoking Tobacco: Never Smokeless Tobacco: Never Tobacco Cessation:Counseling Given: Not Answered Alcohol Use Standard Drinks/Week Comments Yes 1 (1 standard drink = 0.6 oz pur e alcohol) Socially AUDIT-C Answer Date Recorded Q1: How often do you have a drink containing alc ohol? Monthly or less 11/04/2022 Q2: How many drinks containi ng alcohol do you have on a typical day when you are drinking? 1 or 2 11/04/2022 Q3: How often do you have si x or more drinks on one occasion? Never 11/04/2022 PHQ-2 Answer Date Recorded PHQ-2 Total Score (If total score is 3 or more points, staff should administer the PHQ-9) 0 11/27/2020 Hunger Vital Sign Answer Date Recorded Within the past 12 months, y ou worried that your food would run out before you got the money to buy more. Patient declined Within the past 12 months, t he food you bought just didn't last and you didn't have money to get more. Patient declined Comments No Sex and Gender Information Value Date Recorded Sex Assigned at Not on file Legal Sex Female 9:12 AM MANAGER TRAINEE Gender Identity Not on file Sexual Orientation Not on file Obstetrics History Para Term AB IAB SAB Ectopic Multiple Livin g Live Births 2 2 2 0 0 2 Date Outcome GA Total Labor Labor/2nd/3rd Weight Sex Type Anes PTL Susy A1 A5 Name Clin Term Term Last Filed Vital Signs Vital Sign Reading Time Taken Comments Blood Pressure 155/90 06/28/2024 2:29 PM MANAGER TRAINEE Pulse 74 06/28/2024 2:29 PM MANAGER TRAINEE Temperature 36.9 C (98.4 F) 06/28/2024 2:29 PM MANAGER TRAINEE Respiratory Rate 19 06/28/2024 2:29 PM MANAGER TRAINEE Oxygen Saturation 99% 06/28/2024 2:29 PM MANAGER TRAINEE Inhaled Oxygen Concentration - - Weight 83.9 kg (185 lb) 06/28/2024 2:29 PM MANAGER TRAINEE Height 167.6 cm (5' 6 ) 06/28/2024 2:29 PM MANAGER TRAINEE Body Mass Index 29.86 06/28/2024 2:29 PM MANAGER TRAINEE Plan of Treatment Health Maintenance Due Date Last Done Comments Breast Cancer Screening-Mammogram 1965 Hepatitis C Screening 1965 DTaP/Tdap/Td Vaccine (1 - Tdap) 1978 Hepatitis B Screening 1985 Regular Well Visit/Exam 18-64 1985 Pneumococcal vaccine <65 (1 of 2 - PCV) 1986 Zoster Vaccine (1 of 2) 2017 Depression Screening 11/27/2021 11/27/2020, 09/28/19 21 Covid-19 Vaccine (3 - 2023-2 5 season) 2024 03/14/2021, 02/20/2021 Influenza Vaccine (#1) 2024 03/09/2017 Colon Cancer Screening-Colonoscopy 09/03/2030 09/03/2020 Colon Cancer Screening-CT Colonography Discontinued 09/03/2020 Colon Cancer Screening-DNA Stool Discontinued 09/04/19 21 Colon Cancer Screening-FIT Discontinued 09/03/2020 Colon Cancer Screening-Sigmoidoscopy Discontinued 09/03/2020 Cervical Cancer Screening Discontinued 2022, 02/06/2022, 02/07/2021, Additional history exists Procedures Procedure Name Priority Date/Time Associated Diagnosis Comments PAP AND HIGH RISK HPV, REFLEX TO GENOTYPING Routine 02/12/2023 1:42 PM CDT VAIN III (vaginal intraepithelial neoplasia grade III) COLONOSCOPY 09/03/2020 11:22 AM CDT from Last 3 Months or Most Recently Relevant to Health Maintenance Results * Pap and High Risk HPV and Genotyping (Cytology Component) (02/12/2023 1:42 PM CDT) Thin prep (Pap test) 02/12/2023 1:42 PM CDT 02/12/2023 4:29 PM CDT Narrative PATHOLOGY [facility] - 02/18/2023 2:30 PM CDT EPIC results best viewed via link to PDF [facility] [place] [address] Note to Patients: This report may contain a detailed description of human tissue sent by a health care provider to the laboratory for pathologic evaluation. The content of this report is essential for diagnosis and may provide important critical findings. This information may be unfamiliar to patients to review without a medical professional present. It is advised that the patient review this report in the presence of a health care provider who can answer questions and explain the details. CYTOPATHOLOGY REPORT FINAL Patient Name: KIKO CEE Gender: F : 1965 (Age: 57) Address: [address] [place], [place] [phone] Hospital #: [id number] Service: BANK RECONCILIATOR Location: Patient Type: [facility] SPECIMEN Taken: 02/12/2023 Received: 02/12/2023 Accessioned: 02/15/2023 Reported: 02/18/2023 Physician(s): Baylee Gibbs MD FINAL INTERPRETATION SOURCE OF SPECIMEN Liquid based Thin Prep pap with HPV: STATEMENT OF ADEQUACY - Satisfactory for evaluation - No endocervical/transformation zone sample present in a post menopausal patient GENERAL CATEGORIZATION: - Negative for squamous intraepithelial lesion or malignancy Comments HPV HR 16 vaginal- not reported HPV HR 18 vaginal- not reported HPV HR non 16/18 vaginal-not reported ADDITIONAL INFORMATION Testing was performed using the francisca HPV assay ([employer] This test has been modified from the ui application developer's instructions. Its performance characteristics were determined by [facility] in a manner consistent with CLIA requirements. This test has not been cleared or approved by the U.S. Food and Drug Administration. Test Performed by: [address] [address] Receiving Inspector: Antonio Hanley M.D. Ph.D.; CLIA# [id number] This specimen has been rescreened in accordance with this laboratory's Thermodynamics Engineer Program. k/02/18/2023 14:30 Ofelia Zhu MS, CT (ASCP) Report Electronically Reviewed and Signed Out By MADDY Pierce(ASCP) 02/18/2023 14:30:44 Cervicovaginal Cytology (Pap Test) Disclaimer: The Pap test is a screening test used to detect cervical cancer and its precursors; it is not a diagnostic procedure. False negative and false positive results do occur. Pap test results should be interpreted in the context of pertinent clinical information and biopsy results as indicated. [facility] Clinical Laboratory Improvement Amendments (CLIA) mandate that cytologic and histologic results be correlated for laboratory quality measurement specialist & improvement standards. FOR ALL HIGH-GRADE CASES we request submission of follow-up histological material and/or reports that have not been previously provided so that we may fulfill said required standards. Gross Description A. Liquid based Thin Prep pap with HPV: Cervical/vaginal - Screening ThinPrep Clinical Diagnosis and History Last Menstrual Period: PM Menstrual History: Post-menopausal The patient is a 57 year old female with HX of atypical squamous cells, HR HPV+. Report Images and scanned documents, if included only viewable in PDF version The performance characteristics of some immunohistochemical stains, in-situ hybridization and fluorescence in-situ hybridization tests and immunophenotyping by flow cytometry cited in this report (if any) were determined by the Surgical Pathology Department at [facility] as part of an ongoing vice president quality assurance program and in compliance with federally mandated regulations drawn from the Clinical Laboratory Improvement Act of 1988 (CLIA '88). Some of these tests rely on the use of analyte specific reagents and are subject to specific labeling requirements by the US Food and Drug Administration. Such diagnostic tests may only be performed in a facility that is certified by the Department of Health and Human Services as a high complexity laboratory under CLIA '88. The FDA has determined that such clearance or approval is not necessary. This test is used for clinical purposes. It should not be regarded as investigational or for research. Nevertheless, federal rules concerning the medical use of analyte specific reagents require that the following disclaimer be attached to the report: This test was developed and its performance characteristics determined by the Surgical Pathology Department of [facility]. It has not been cleared or approved by the U. S. Food and Drug Administration. us Baylee Gibbs MD LAB CYTOLOGY [facility] BARRETT Final Result PATHOLOGY [facility] 3rd Floor [place], [place] [phone] * COLONOSCOPY (09/03/2020 11:22 AM CDT) Anatomical Region Laterality Modality Other Narrative Procedure Note Sandi Arvizu MD - 09/03/2020 11:22 AM CDT [facility] Patient Name: Kiko Cee Procedure Date: 09/03/2020 11:22 AM Date of : 1965 Admit Type: Outpatient Age: 55 Gender: Female Note Status: Finalized Attending MD: Sandi Arvizu M.D. Procedure Date: 09/03/2020 Procedure: Colonoscopy Indications: Screening for colorectal malignant neoplasm, Thisis the patient's first colonoscopy Providers: Sandi Arvizu M.D., Aristides Nichols M.D. (Anesthesia Staff), Karol Garcia RN Referring MD: Margarita Walker MD Medicines: Monitored Anesthesia Care Complications: No immediate complications. Estimated Blood Loss: Estimated blood loss: none. Procedure: Pre-Anesthesia Assessment: - Prior to the procedure, a History and Physicalwas performed, and patient medications and allergieswere reviewed. The patient is competent. The risks and benefits of the procedure and the sedation optionsand risks were discussed with the patient. Allquestions were answered and informed consent was obtained. Patient identification and proposed procedure were verified by the physician, the nurse and the anesthesiologist in the procedure room. MentalStatus Examination: alert and oriented. AirwayExamination: normal oropharyngeal airway and neck mobility. Respiratory Examination: clear to auscultation. CV Examination: normal. Prophylactic Antibiotics: The patient does not require prophylactic antibiotics. Prior Anticoagulants: The patient has taken no previous anticoagulant or antiplatelet agents. ASA Grade Assessment: II - A patient with mild systemic disease. After reviewing the risks and benefits,the patient was deemed in satisfactory condition to undergo the procedure. The anesthesia plan was touse monitored anesthesia care (MAC). Immediately priorto administration of medications, the patient was re-assessed for adequacy to receive sedatives. The heart rate, respiratory rate, oxygen saturations, blood pressure, adequacy of pulmonary ventilation,and response to care were monitored throughout the procedure. The physical status of the patient was re-assessed after the procedure. - The risks and benefits of the procedure and the sedation options and risks were discussed with the patient. All questions were answered and informed consent was obtained. After I obtained informed consent, the scope was passed under direct vision. Throughout theprocedure, the patient's blood pressure, pulse, and oxygen saturations were monitored continuously. The scopewas passed under direct vision. The Colonoscope was introduced through the anus and advanced to the the cecum, identified by appendiceal orifice andileocecal valve. The colonoscopy was performed without difficulty. The patient tolerated the procedurewell. The quality of the bowel preparation was adequate.The bowel preparation used was sodium phosphate viasplit dose instruction. Findings: The entire examined colon appeared normal. Impression: - The entire examined colon is normal. - No specimens collected. Recommendation: - The following measures may reduce the risk ofcolon cancer: High fiber diet and low fat diet (especiallyreduction of red meat consumption). Supplement with 400-800mg vitamin E, 800 - 1000 mcg folic acid, 200 mgselinium and 9323-3308 mg calcium. Exercise has been shownto be beneficial. It has also been reported thatregular use of aspirin can reduce the risk of cancer - 325mg daily four or more times per week. Aspirin use can cause bleeding (stomach ulcers). Aspirin andvitamin E should not be used for 2 weeks if biopsy or polyps have been removed. - Repeat colonoscopy in 10 years for screening purposes. Procedure Code(s): --- Professional --- 33003, Colonoscopy, flexible; diagnostic, including collection of specimen(s) by brushing or washing,when performed (separate procedure) Diagnosis Code(s): --- Professional --- Z12.11, Encounter for screening for malignantneoplasm of colon CPT copyright 2019 [employer]. All rights reserved. The codes documented in this report are preliminary and upon director of cardiology reviewmay be revised to meet current compliance requirements. Electronically signed by Sandi Arvizu M.D. Sandi Arvizu M.D. 09/03/2020 11:54:59 AM Number of Addenda: 0 Note Initiated On: 09/03/2020 11:22 AM Sandi Arvizu MD ENDOSCOPY PROCEDURES Fi nal Result from Last 3 Months or Most Recently Relevant to Health Maintenance Insurance [facility] Care Teams Personal Care Attendant Relationship Specialty Start Date End Date Tammy Waite MD PCP - General Family Medicine 10/05/23 Sandi Arvizu MD Consulting Physician Gastroenterology 11/13/20
--- OUTSIDE RECORDS SUMMARY | 2024-08-14 17:54 | XMS_ITS | Clinical Summary ---
Author Organization [facility] Summer franck Justin Address [address] [place] [address] Care Team Providers Care Carton Stenciler Name Role Phone Tammy Waite MD Primary Care Provider [phone] Allergies Active Allergy Reactions Criticality Noted Date Comments Erythromycin Diarrhea,Nausea and Vomiting Low 05/03 Medications atorvastatin (LIPITOR) 10 mg tablet Take 10 mg by mouth daily. 02/09/2023 Active cholecalciferol 1,250 mcg (50,000 unit) Capsule Take 50,000 Units by mouth every 7 days. 02/20/2021 Active cyanocobalamin 1,000 mcg Tablet Take 1,000 mcg by mouth daily. Active estradioL (CLIMARA) 0.1 mg/24 hr patch Apply 1 Patch to skin as directed every 7 days. 02/12/2023 Active triamterene-hyd roCHLOROthiazid e (DYAZIDE) 37.5-25 mg capsule Take 1 Capsule by mouth daily at bedtime. Active iron/folic ac/vit Bcomp,C/min (B USJZHLL-C-JZX-F E-FA ORAL) Take by mouth daily. Active cetirizine (ZyrTEC) 10 mg tablet Take 20 mg by mouth daily. Active montelukast (SINGULAIR) 10 mg tablet Take 10 mg by mouth daily. 09/17/2023 09/17/19 Active Active Problems No known active problems Encounters Date Type Department Care Team Description 08/14/2024 3:30 PM DBAS Office Visit [facility] Oncology and Hematology - [place] [address] [place] [address] Esdras Andres MD Leukopenia, unspecified type (Primary Dx) 08/08/2024 External Device Data STL ABSTRACTION Provider, Abstract 07/12/2024 External Device Data STL ABSTRACTION Provider, Abstract 07/12/2024 External Device Data STL ABSTRACTION Provider, Abstract 06/27/2024 External Device Data STL ABSTRACTION Provider, Abstract from Last 3 Months Family History Medical History Relation Name Comments No Known Problems Brother Heart Disease Father Hypertension Mother No Known Problems Sister 1 No Known Problems Sister 2 No Known Problems Son 1 No Known Problems Son 2 Relation Name Status Comments Brother Alive Father Mother Sister 1 Alive Sister 2 Alive Son 1 Alive Son 2 Alive Social History Tobacco Use Types Packs/Day Years Used Date Smoking Tobacco: Never Smokeless Tobacco: Never Tobacco Cessation:Counseling Given: Not Answered Alcohol Use Standard Drinks/Week Comments Yes 0 (1 standard drink = 0.6 oz pur e alcohol) Socially Comments Unknown Sex and Gender Information Value Date Recorded Sex Assigned at Not on file Legal Sex Female 11:30 AM DBAS Gender Identity Not on file Sexual Orientation Not on file Last Filed Vital Signs Vital Sign Reading Time Taken Comments Blood Pressure 137/81 08/14/2024 3:35 PM DBAS Pulse 67 08/14/2024 3:35 PM DBAS Temperature 36.6 C (97.9 F) 08/14/2024 3:35 PM DBAS Respiratory Rate 17 08/14/2024 3:35 PM DBAS Oxygen Saturation 96% 08/14/2024 3:35 PM DBAS Inhaled Oxygen Concentration - - Weight 84.9 kg (187 lb 3.2 oz) 08/14/2024 3:35 P M DBAS Height 167.6 cm (5' 6 ) 06/29/2023 2:37 PM DBAS Body Mass Index 30.21 06/29/2023 2:37 PM DBAS Plan of Treatment Health Maintenance Due Date Last Done Comments Pre-Diabetes and Diabetes Screening 1965 DTAP/TDAP/TD VACCINES (1 - Tdap) 1986 HEPATITIS B VACCINES (1 of 3 - 19+ 3-dose series) 1986 BREAST CANCER SCREENING 2007 FIT-DNA Q 3 years 2012 FIT/FOBT Q 1 year 2012 Flex Sig/CT Colonography Q 5 years 2012 ZOSTER VACCINE (1 of 2) 2017 INFLUENZA VACCINE (#1) 2024 Preventative Visit- Commercial 06/21/2024 CERVICAL CANCER SCREENING 02/12/2026 02/12/2023 COLORECTAL SCREENING 09/03/2030 09/03/2020, 09/04/19 21 Colorectal Cancer Screening 09/03/2030 Insurance [facility] [id number] MEDICAID [place] Care Teams Carton Stenciler Relationship Specialty Start Date End Date Tammy Waite MD [address] [facility] [address] [address] PCP - General Family Practice 06/29/23
--- OUTSIDE RECORDS SUMMARY | 2024-08-14 17:54 | XMS_ITS ---
Author Organization 1 OF Arline murray [facility] Address [address] [place] [address] Care Team Providers Care Distribution Supervisor Name Role Phone Jim Waite M.D. Primary Care Provider Tyrell Douglas Unavailable [phone] Allergies Allergen (clinical drug ingredient) Drug/Non Drug Allergy documented on EMR Reaction Allergy Type Onset Date Status erythromycin Erythromycin Unknown Drug Allergy A ctive Adhesive Unknown Allergy Active REASON FOR VISIT RT Bunion Medications Medication SIG (Take, Route, Frequency, Duration) Notes Start Date End Date Status Xyzal Active Vitamin D3 Active Estradiol Active Bupropion & Diet Manage Prod Active Triamterene Active Social History Tobacco Use: Social History Observation Description Date Details (start date - stop date) Never Smoker NA - NA Tobacco Control (Standard) Question Answer Notes Tobacco use: Nonsmoker Problems Problem Type SNOMED Code ICD Code Onset Dates Problem Status W/U Status Risk Notes Problem [id number] Neuritis of right foot (G57.91) Active confirmed Vital Signs Height 66 in 05/18/2023 Weight 170 lbs 05/18/2023 BMI 27.44 kg/m2 05/18/2023 Encounters Encounter Location Date Provider Diagnosis [facility] [address] [place] [id number] 05/18/2023 Tyrell Stearns Acquired hallux valgus, right M20.11 ; Neuritis of right foot G57.91 and Right foot pain M79.671 Assessments Encounter Date Diagnosis (ICD Code) Assessment Notes Treatment Notes Treatment Clinical Notes Section Notes 05/18/2023 Acquired hallux valgus, right (ICD-10 - M20.11) Patient visit today included a review of medical history, review of systems, physical exam and discussion of exam findings, diagnostic test results, and discussion of diagnoses and treatment options. Discussed tx options for bunion pain including conservative and surgical options. Discussed importance of wearing the correct size shoe and avoiding tight shoes. Discussed oral and topical pain meds and shoe orthotics. Discussed option of steroid injection but advised this would provide only temporary relief if the bunion continues to be irritated by shoes. Recommended trying nonsurgical before considering surgery but advised sometimes surgery is necessary to relieve the pain. 05/18/2023 Neuritis of right foot (ICD-10 - G57.91) 05/18/2023 Right foot pain (ICD-10 - M79.671) Plan Of Treatment Treatment Notes Assessment Notes Acquired hallux valgus, right Patient visit today included a review of medical history, review of systems, physical exam and discussion of exam findings, diagnostic test results, and discussion of diagnoses and treatment options. Discussed tx options for bunion pain including conservative and surgical options. Discussed importance of wearing the correct size shoe and avoiding tight shoes. Discussed oral and topical pain meds and shoe orthotics. Discussed option of steroid injection but advised this would provide only temporary relief if the bunion continues to be irritated by shoes. Recommended trying nonsurgical before considering surgery but advised sometimes surgery is necessary to relieve the pain. Next Appt Details Follow Up: prn, Reason: Progress Notes * JAYE Florecita RDOB:[birth year] (57 yo F)Acc No.[id number]:05/18/2023 Progress Notes Patient: Florecita COX Provider: Paola Stearns DPM :1965 A ge:57 Y S ex:Female Date:05/18/2023 Address:[address] [place] [address] Pcp:Jim Waite M.D. Subjective: * Chief Complaints: * R T Bunion * HPI: M Asa assisting with visit:: HPI/Rooming: Kalyn sogn reason for visit:: Pain level: 5 -6/10. 57 year old female, referred by existing pt Anastasia Wayne. PTO with chief complaint of RT foot bunion of 30 days duration aggravated by wearing shoes. Sharp pain improves when not wearing shoes, and getting off of feet. Pt has not used any forms of tx and has not been physically influenced in daily activities. * ROS: G ENERAL: NAUSEA, FEVER OR CHILLS d enies, d enies. U NEXPLAINED LOSS OR GAIN OF WEIGHT d enies. U NEXPLAINED FATIGUE OR LACK OF ENERGY d enies. R ECENT FALL d enies. C ARDIAC: CHEST PAIN d enies. D IFFICULTY BREATHING WHEN LAYING DOWN d enies. S OB w/ ACTIVITY d enies. P ERIPHERAL VASCULAR: FATIGUE IN CALF MUSCLE WHILE WALKING d enies. P AIN, SWELLING OR FEELING OF TIGHTNESS IN LEG d enies. F REQUENT OR CHRONIC SWELLING OF LEGS admits, a nkles . T OES TURN BLUE, WHITE, PAINFUL WITH COLD TEMPERATURE d enies.? N EUROLOGICAL: DIZZINESS, LIGHT HEADED OR FAINTING d enies. W EAKNESS OR PARALYSIS d enies. D IFFICULTY WITH BALANCE d enies. P ERIPHERAL NEUROLOGICAL: BURNING, TINGLING, STINGING SENSATION OF FEET d enies. N UMBNESS OF FOOT / FEET d enies. W EAKNESS OF FOOT / FEET d enies. G ASTROINTESTINAL: ABDOMINAL PAIN d enies. B LOODY STOOL d enies. F REQUENT HEARTBURN d enies. F REQUENT NAUSEA OR VOMITING d enies. S KIN: EXCESSIVE SWEATING OF FEET / HANDS d enies. C HRONIC OR RECURRENT SKIN RASH d enies. N ONHEALING SKIN LESIONS d enies. T ENDENCY TO FORM THICK SCARS (KELOIDS) d enies. M USCULOSKELETAL: LOW BACK PAIN admits. H IP PAIN admits. K NEE PAIN admits. S WELLING / STIFFNESS JOINTS OF HANDS / FEET d enies. E NDOCRINE: DELAYED HEALING OF WOUNDS d enies. I NTOLERANCE TO HEAT OR COLD d enies. E XCESSIVE THIRST d enies. F REQUENT URINATION d enies. ? H EMATOLOGY/ONCOLOGY: ANEMIA admits, b oarderline . B LEED or BRUISE EASILY d enies. A NTI-COAGULANT USE d enies. * Medical History: * Surgical History: D enies Past Surgical History * Hospitalization/Major Diagno stic Procedure: * Family History: Rheumatoid arthritis. * Social History: T obacco Use: T obacco Control (Standard) T obacco use: N onsmoker D rugs/Alcohol: D o you smoke marijuana?: Denies. Alcohol use: Social alcohol use. Recreational drugs: Patient denies recreational drug use. M iscellaneous: E xercise: Moderate. Living with: alone. 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 * Medications: T akingTriamterene Bupropion & Diet Manage Prod Estradiol Vitamin D3 Xyzal Medication List reviewed and reconciled with the patientTaking Triamterene Taking Bupropion & Diet Manage Prod Taking Estradiol Taking Vitamin D3 Taking Xyzal Medication List reviewed and reconciled with the patient * Allergies: E rythromycinAdhesiveno[Allergies Verified] Objective: * Vitals: W t:170lbs, Wt-k.11 kg, Ht: 66 in, BMI:27.44Index. * Examination: G eneral Examination: Constitutional / Appearance: N o acute distress , Well nourished, Appropriate personal hygiene. Mental status: C ooperative, Oriented to person, place and time, Mood and affect: normal, Judgement and intellect: normal with appropriate response to questions. Shoes today: h eeled boots. N ormal range of motion for all joints from the ankle joint distal without pain or crepitus appreciated and there is at least 10 degrees of ankle joint dorsiflexion appreciated bilateral lower extremity with the knees extended. There is mild pain with palpation to the dorsal medial aspect of the right first metatarsal head where osseous prominence is appreciated and there is a positive Tinel's sign upon percussion of this area. Some friction induced erythema noted as well. No hypermobility noted to the right first ray and mild lateral deviation of the hallux is appreciated reducible in a flexible manner. X-ray 3 views of the right foot reveal a mild hallux valgus deformity with an intermetatarsal 1-2 angle measuring approximately 8.4. No asymmetry noted to the first MTPJ with only mild lateral deviation of the hallux at the MTPJ. There is osseous prominence noted to the medial aspect of the first metatarsal head and the sesamoids actually appear to be within normal limits. Some metatarsals primus elevatus on lateral view. L ower Extremity VASCULAR: : Pulses: D P and PT pulses, palpable, bilateral. Temperature gradient: w arm from proximal to distal, bilateral. Pedal hair: p resent, bilateral. Capillary refill at distal toes l ess than 3 seconds. ? L ower Extremity DERM: : Skin: w ell hydrated , no suspicious lesions, without interdigital maceration, bilateral. L ower Extremity NEURO: : Neurological status: n ormal sensation to sharp/ dull with normal and symmetric muscle tone bilateral. L ower Extremity MSK: : Gait Gait unremarkable with normal posture, propulsion and balance. Muscle strength: 5 /5 , all 4 quadrants tested, bilateral.? Left lower extremity inspection and palpation: N o palpable masses or nodules noted.. Right lower extremity inspection and palpation: N o palpable masses or nodules noted. . Assessment: * Assessment: 1. N euritis of right foot - G57.91 2 . A cquired hallux valgus, right - M20.11 (Primary) 3 . R ight foot pain - M79.671 Plan: * Treatment: * Procedure Codes: 7 3630 X-RAY FOOT (3 views), Modifiers: RT * Preventive Medicine: Counseling: C are goal follow-up plan: Above Normal BMI Follow-up L ifestyle education regarding diet * Follow Up: p rn * Images: * TER SUPERVISOR Sign off status: Completed true * Provider: Paola Stearns DPM Date: 07/18/2022 Generated for Rasta hawley/Sulema/eTadolphsmitting on: 0 08/14/2024 05:54 PM SHELTER SUPERVISOR History and Physical Notes * HPI (History of Present Illness) Category Sub-Category Detail Notes Category Not es Primary reason for visit: Pain level: 5-6/10 57 year old female, referred by existing pt Anastasia Wayne. PTO with chief complaint of RT foot bunion of 30 days duration aggravated by wearing shoes. Sharp pain improves when not wearing shoes, and getting off of feet. Pt has not used any forms of tx and has not been physically influenced in daily activities. MA assisting with visit: HPI/Rooming: Noemi Examination Category Sub-Category Detail Notes Category Not es General Examination Mental status: Cooperative, Oriented to per son, place and time, Mood and affect: normal, Judgement and intellect: normal with appropriate response to questions Normal range of motion for all joints from the ankle joint distal without pain or crepitus appreciated and there is at least 10 degrees of ankle joint dorsiflexion appreciated bilateral lower extremity with the knees extended. There is mild pain with palpation to the dorsal medial aspect of the right first metatarsal head where osseous prominence is appreciated and there is a positive Tinel's sign upon percussion of this area. Some friction induced erythema noted as well. No hypermobility noted to the right first ray and mild lateral deviation of the hallux is appreciated reducible in a flexible manner. X-ray 3 views of the right foot reveal a mild hallux valgus deformity with an intermetatarsal 1-2 angle measuring approximately 8.4. No asymmetry noted to the first MTPJ with only mild lateral deviation of the hallux at the MTPJ. There is osseous prominence noted to the medial aspect of the first metatarsal head and the sesamoids actually appear to be within normal limits. Some metatarsals primus elevatus on lateral view. Shoes today: heeled boots Constitutional / Appearance: No acute di stress , Well nourished, Appropriate personal hygiene Lower Extremity VASCULAR: Pulses: DP and PT pulse s, palpable, bilateral Temperature gradient: warm from proximal to distal, bilateral Pedal hair: present, bilateral Capillary refill at distal toes less katie n 3 seconds Lower Extremity NEURO: Neurological status: norm al sensation to sharp/ dull with normal and symmetric muscle tone bilateral Lower Extremity MSK: Muscle strength: 5/5 , all 4 quad rants tested, bilateral Left lower extremity inspect ion and palpation: No palpable masses or nodules noted. Right lower extremity inspec tion and palpation: No palpable masses or nodules noted. Gait Gait unremarkable wi th normal posture, propulsion and balance Diagnostic Studies: X-rays of right lowe r extremity: Lower Extremity DERM: Skin: well hydra roel , no suspicious lesions, without interdigital maceration, bilateral
--- OUTSIDE RECORDS SUMMARY | 2024-08-14 17:54 | XMS_ITS | Patient Health Record ---
Author Organization 1 OF Arline murray [facility] Address [address] [place] [address] Care Team Providers Care Brick Burner Head Name Role Phone Jim Waite M.D. Primary Care Provider Lisa solokamilla StearnsTyrell Unavailable [phone] Allergies Allergen (clinical drug ingredient) Drug/Non Drug Allergy documented on EMR Reaction Allergy Type Onset Date Status erythromycin Erythromycin Unknown Drug Allergy A ctive Adhesive Unknown Allergy Active Reason For Referral No Information Medications Medication SIG (Take, Route, Frequency, Duration) Notes Start Date End Date Status Vitamin D3 Active Estradiol Active Triamterene Active Xyzal Not-Taking Bupropion & Diet Manage Prod Not-Taking Atorvastatin Calcium 10 MG 10 MG ORALLY DAILY Oral for 90 Days Active Social History Tobacco Use: Social History Observation Description Date Details (start date - stop date) Never Smoker NA - NA Tobacco Control (Standard) Question Answer Notes Tobacco use: Nonsmoker Problems Problem Type SNOMED Code ICD Code Onset Dates Problem Status W/U Status Risk Notes Problem [id number] Neuritis of right foot (G57.91) Active confirmed Plan Of Treatment No Information Insurance Providers Payer Name Payer Address Payer Phone Subscriber Number Group Number Insured Name Patient Relationship to Insured Coverage Start Date Coverage End Date [employer] [address] [address] [place] [address] [id number] Florecita Rushing Self - [facility] the [facility] [address] [address] [place] [address] [phone] [id number] Florecita Rushing Self - patient is the insured Medical (General) History Medical History History ICD Code anemia Arthritis asthma migraine headaches celiac disease
--- OUTSIDE RECORDS SUMMARY | 2024-08-14 17:54 | XMS_ITS | Encounter Summary ---
Author Organization [facility] Address [address] [place] [address] Care Team Providers Care City Alderman Name Role Phone Tammy Waite MD Primary Care Provider [phone] Reason for Visit * Reason Comments Follow Up Encounter Details Date Type Department Care Team (Late st Contact Info) Description 08/14/2024 3:30 PM RECONSTRUCTIVE DENTIST Office Visit [facility] Oncology and Hematology [facility] [address] [place] [address] Esdras Andres MD [address] [facility] [address] [place] [address] Leukopenia, unspecified type (Primary Dx) Social History Tobacco Use Types Packs/Day Years Used Date Smoking Tobacco: Never Smokeless Tobacco: Never Tobacco Cessation:Counseling Given: Not Answered Alcohol Use Standard Drinks/Week Comments Yes 0 (1 standard drink = 0.6 oz pur e alcohol) Socially Comments Unknown Sex and Gender Information Value Date Recorded Sex Assigned at Not on file Legal Sex Female 11:30 AM RECONSTRUCTIVE DENTIST Gender Identity Not on file Sexual Orientation Not on file documented as of this encounter Last Filed Vital Signs Vital Sign Reading Time Taken Comments Blood Pressure 137/81 08/14/2024 3:35 PM RECONSTRUCTIVE DENTIST Pulse 67 08/14/2024 3:35 PM RECONSTRUCTIVE DENTIST Temperature 36.6 C (97.9 F) 08/14/2024 3:35 PM RECONSTRUCTIVE DENTIST Respiratory Rate 17 08/14/2024 3:35 PM RECONSTRUCTIVE DENTIST Oxygen Saturation 96% 08/14/2024 3:35 PM RECONSTRUCTIVE DENTIST Inhaled Oxygen Concentration - - Weight 84.9 kg (187 lb 3.2 oz) 08/14/2024 3:35 P M RECONSTRUCTIVE DENTIST Height - - Body Mass Index 30.21 06/29/2023 2:37 PM RECONSTRUCTIVE DENTIST documented in this encounter Progress Notes * Esdras Andres MD - 08/14/2024 3:48 PM CST HEMATOLOGY / ONCOLOGY PROGRESS NOTE Patient Identification: Name: Florecita Rushing Age: 59 y.o. Sex: female : 1965 DIAGNOSIS Leukopenia CURRENT TREATMENT Expectant TREATMENT HISTORY SUBJECTIVE Patient came to the office for follow-up visit. She denies any night sweats fever chills and weightloss. No other new complaints. Review of system Constitutional: Patient did not mention fevers, sweats, fatigue, malaise, weight loss HEENT: Patient did not mention sinus congestion, hearing or vision problems Respiratory: Patient did not mention cough, dyspnea, wheeze Cardiovascular: Patient did not mention chest pain, exertional chest pressure/discomfort, nausea, syncope, shortness of breath GI: Patient did not mention constipation, diarrhea, dsyphagia, reflux symptoms, vomiting, melena : Patient did not mention dysuria, frequency, incontinence, urgency Integumentary system: no lymphadenopathy, sweats, flushing Musculoskeletal: Patient not mention: myalgia, arthralgia Neurological: Patient did not mention blurry or disturbed vision, numbness/weakness, dizziness Skin: No lumps, bumps or rashes. Objective: Vital signs in last 24 hours: As per nursing note Exam: General appearance: alert, cooperative, no distress, appears stated age Head: normocephalic, without obvious abnormality, atraumatic Eyes: conjunctivae/corneas clear, EOM's intact Ears: normal external ear canals AU Nose: Nares normal. Septum midline. Mucosa normal. No drainage or sinus tenderness Throat: Lips, mucosa, and tongue normal. Teeth and gums normal Neck: supple, symmetrical, trachea midline. Lungs: clear to auscultation bilaterally Heart: regular rate and rhythm, S1, S2 normal, no murmur, click, rub or gallop Abdomen: soft, non-tender. Bowel sounds normal. No masses, No organomegaly Extremities: extremities normal, atraumatic, no cyanosis or edema Skin: Skin color, texture, turgor normal. No rashes or lesions Lymph nodes: No lymphadenopathy Neuro: No obvious focal deficit PATH LABS Labs from 10/27/2023 showed WBC 4.9 hemoglobin 12.7 platelet 309,000 creatinine 1.3 @IMAGEIMP@ Assessment: Plan: There are no active problems to display for this patient. Leukopenia. Likely drug-induced secondary to Wellbutrin which has been discontinued. Labs showed normal WBC count. She will follow-up with the primary care physician. Will see her back on as-needed basis. Acute renal insufficiency. Could be secondary to Bactrim DS. I recommended to follow-up with her primary care physician. ? TOBACCO COUNSELING She is not a tobacco/nicotine user. 08/14/2024 Esdras Andres MD NSTRUCTIVE DENTIST documented in this encounter Plan of Treatment Not on file documented as of this encounter Visit Diagnoses Diagnosis Leukopenia, unspecified type- Primary documented in this encounter Care Teams City Alderman Relationship Specialty Start Date End Date Tammy Waite MD [address] [facility] [address] [place] [phone] PCP - General Family Practice 06/29/23 documented as of this encounter
--- OUTSIDE RECORDS SUMMARY | 2024-08-14 17:54 | XMS_ITS | Clinical Summary ---
Author Organization [facility] Address [address] [place] [address] Care Team Providers Care Clinical Systems Analyst Name Role Phone Unavailable Primary Care Provider Unavailabl e Social History Tobacco Use Types Packs/Day Years Used Date Smoking Tobacco: Never Assessed Comments Unknown Sex and Gender Information Value Date Recorded Sex Assigned at Not on file Legal Sex Female 2:55 PM CANVAS CUTTER HAND Gender Identity Not on file Sexual Orientation Not on file Plan of Treatment Health Maintenance Due Date Last Done Comments Cervical Cancer Screening Pa p Smear (Age 30 to 64) Every 3 Years 1967 Colorectal Cancer Screening Colonoscopy (10 Years) 1967 Annual Physical 1970 Hepatitis C 1985 DTaP, Tdap and Td Vaccines ( 1 - Tdap) 1986 Hepatitis B Vaccines (1 of 3 - 19+ 3-dose series) 1986 Cervical Cancer Screening Pa p with HPV Testing (Age 30 to 64) Every 5 Years 1997 Cervical Cancer Screening with HPV 1997 Mammogram Screening 2007 Zoster Vaccines (1 of 2) 2017 COVID-19 Vaccine (2023-2 5 season) 2024 Influenza Adult (#1) 2024 Meningococcal B Vaccine Aged Out No l onger eligible based on patient's age to complete this topic Meningococcal Vaccine Aged Out No amari ab eligible based on patient's age to complete this topic Pneumococcal Vaccine: Pediat rics (0 to 5 Years) and At-Risk Patients (6 to 64 Years) Aged Out No longer eligible b ased on patient's age to complete this topic RSV Immunizations Under 20 Months Aged Out No longer eligible based on patient's age to complete this topic
--- OUTSIDE RECORDS SUMMARY | 2024-08-14 17:54 | XMS_ITS | Clinical Summary ---
Author Organization [facility] [employer] Address [address] [place] [address] Care Team Providers Care Radio Mechanic Helper Name Role Phone Unavailable Primary Care Provider Unavailabl e Source Comments [facility] [employer],non-owned Affiliates and Associated Physician Practices is amultiple site organization consisting of ambulatory clinics and hospital sitesin [place], [place], [place] and [place]. This disclosure is being madepursuant to the Care Everywhere program and may not contain all information available regarding this patient. Last updated 18.[facility] [employer] Allergies Active Allergy Reactions Criticality Noted Date Comments Erythromycin Nausea and/or Vomiting 05/03/2018 Medications * Be aware that medications may not be up to date on this document. Alwaysverify current medications with the patient. Medication Sig Dispensed Refills Start Date End Date Status Nutritional Supplements (VITAMIN D BOOSTER PO) Ac tive estradiol (VIVELLE-DOT) 0.0375 MG/24HR patch Apply 1 patch to skin every 3 days Active TRIAMTERENE PO Active Social History Tobacco Use Types Packs/Day Years Used Date Smoking Tobacco: Never Smokeless Tobacco: Never Sex and Gender Information Value Date Recorded Sex Assigned at Not on file Gender Identity Not on file Sexual Orientation Not on file Last Filed Vital Signs Vital Sign Reading Time Taken Comments Blood Pressure 118/68 05/03/2018 5:48 PM MOTOR POOL CLERK Pulse 79 05/03/2018 5:48 PM MOTOR POOL CLERK Temperature 36.6 C (97.9 F) 05/03/2018 5:48 PM MOTOR POOL CLERK Respiratory Rate - - Oxygen Saturation 100% 05/03/2018 5:48 PM MOTOR POOL CLERK Inhaled Oxygen Concentration - - Weight 73.5 kg (162 lb) 05/03/2018 5:48 PM MOTOR POOL CLERK Height 167.6 cm (5' 6 ) 05/03/2018 5:48 PM MOTOR POOL CLERK Body Mass Index 26.15 05/03/2018 5:48 PM MOTOR POOL CLERK Plan of Treatment Health Maintenance Due Date Last Done Comments COLOGUARD (AGES 45-75) - COL ON CA SCREENING 1967 COLON MONITORING 1967 COLONOSCOPY - COLON CA SCREENING 1967 CT COLONOGRAPHY - COLON CA SCREENING 1967 Colorectal Cancer Screening 1967 FIT - COLON CA SCREENING 1967 FLEX SIG - COLON CA SCREENING 1967 LIPID TESTING 1967 MAMMOGRAM 1967 PAP SMEAR 1967 HIV SCREENING 1982 HEPATITIS C SCREENING 06/21/1985 DTAP/TDAP/TD VACCINES (1 - Tdap) 1986 HEPATITIS B VACCINE (1 of 3 - 19+ 3-dose series) 1986 PNEUMOCOCCAL VACCINE 50+ (1 of 1 - PCV) 2017 ZOSTER VACCINE (1 of 2) 2017 SCREENING FOR DIABETES 05/03/2018 COVID-19 VACCINE (1 - 2023-2 5 season) 2024 INFLUENZA VACCINE (#1) 2024 DEPRESSION SCREENING 06/21/2024 HIB VACCINE Aged Out No longer eligi ble based on patient's age to complete this topic HPV VACCINE Aged Out No longer eligi ble based on patient's age to complete this topic MENINGOCOCCAL (Group B) VACCINE Aged Out No longer eligible based on patient's age to complete this topic MENINGOCOCCAL VACCINE Aged Out No amari ab eligible based on patient's age to complete this topic PNEUMOCOCCAL VACCINE Aged Out No long er eligible based on patient's age to complete this topic FLORECITA CEE Personal/Famil y Spouse [id number] [place] [phone] FLORECITA CEE Personal/Famil y Spouse [address]
--- OUTSIDE RECORDS SUMMARY | 2024-08-14 17:54 | XMS_ITS | Encounter Summary ---
Author Organization [facility] Address [address] [place] [address] Phone Care Team Providers Care Layout Artist Name Role Phone Sandi Arvizu MD Unavailable [phone] Tammy Waite MD Primary Care Provider + Encounter Details Date Type Department Care Team (Latest Contact Info) Description 05/03/2024 Orders Only [facility] Scanning, Provider Social History Tobacco Use Types Packs/Day Years Used Date Smoking Tobacco: Never Smokeless Tobacco: Never Alcohol Use Standard Drinks/Week Comments Yes 1 [...] on file Legal Sex Female 9:12 AM CALF SKINNER Gender Identity Not on file Sexual Orientation Not on file documented as of this encounter Plan of Treatment Not on file documented as of this encounter Procedures Procedure Name Priority Date/Time Associated Diagnosis Comments SCAN - LABS 05/03/2024 documented in this encounter Results * SCAN - LABS (05/03/2024) us Provider Scanning Final Result documented in this encounter Visit Diagnoses Not on filedocumented in this encounter Care Teams Layout Artist Relationship Specialty Start Date End Date Tammy Waite MD PCP - General Family Medicine 10/05/23 Sandi Arvizu MD Consulting Physician Gastroenterology 11/13/20 documented as of this encounter
--- OUTSIDE RECORDS SUMMARY | 2024-08-14 17:54 | XMS_ITS | Patient Health Summary ---
Author Organization [facility] [employer] Address [address] [place] [address] Care Team Providers Care Stationary Steam Engineer Name Role Phone Unavailable Primary Care Provider Unavailabl e Note from [facility],non-owned Affiliates and Associated Physician Practices is amultiple site organization consisting of ambulatory clinics and hospital sitesin [place], [place], [place] and [place]. This disclosure is being madepursuant to the Care Everywhere program and may not contain all information available regarding this patient. Last updated 18.[facility] [employer] Allergies * Erythromycin(Nausea and/or Vomiting) Medications * Be aware that medications may not be up to date on this document. Alwaysverify current medications with the patient. * Nutritional Supplements (VITAMIN D BOOSTER PO) * estradiol (VIVELLE-DOT) 0.0375 MG/24HR patch Apply 1 patch to skin every 3 days * TRIAMTERENE PO Social History Tobacco Use Types Packs/Day Years Used Date Smoking Tobacco: Never Smokeless Tobacco: Never Sex and Gender Information Value Date Recorded Sex Assigned at Not on file Gender Identity Not on file Sexual Orientation Not on file Last Filed Vital Signs Vital Sign Reading Time Taken Comments Blood Pressure 118/68 05/03/2018 5:48 PM SCALER PACKER Pulse 79 05/03/2018 5:48 PM SCALER PACKER Temperature 36.6 C (97.9 F) 05/03/2018 5:48 PM SCALER PACKER Respiratory Rate - - Oxygen Saturation 100% 05/03/2018 5:48 PM SCALER PACKER Inhaled Oxygen Concentration - - Weight 73.5 kg (162 lb) 05/03/2018 5:48 PM SCALER PACKER Height 167.6 cm (5' 6 ) 05/03/2018 5:48 PM SCALER PACKER Body Mass Index 26.15 05/03/2018 5:48 PM SCALER PACKER Procedures * STREP A SCREEN - POINT OF CARE (AMB) STL(Performed 05/03/2018) Performed for Acute streptococcal pharyngitis * GROSS + MICRO EXAM(Performed 12/10/2003) Results * (ABNORMAL) STREP A SCREEN - POINT OF CARE (AMB) STL (05/03/2018) Strep A Rapid POCT Positive(A) Negative Strep A Internal Control Present Lot # [id number] Expiration Date 10/13/2019 Throat ENTIRE THROAT (SURFACE REGION OF NECK) / Unknown 05/03/2018 Heather E King [facility] - POINT OF CARE ORDERABLES * GROSS + MICRO EXAM (12/10/2003 12:37 PM CDT) Result CASE NUMBER [id number] Comment: ORDERING PHYSICIAN JAZZMINE MACIAS SPECIMEN TYPE Uterus and cervix Surgeon DR. JAZZMINE MACIAS Gross Exam Dr. Vidal Mcnamara M.D. Gross Report COPY TO INDICATION FOR PROCEDURE MENORRHAGIA, ANEMIA OPERATION VAGINAL HYSTERECTOMY GROSS THE SPECIMEN IS RECEIVED IN ONE CONTAINER LABELED WITH THE PATIENT'S NAME AND IDENTIFIED UTERUS, CERVIX . THE SPECIMEN CONSISTS OF A ROUGHLY PEAR SHAPED UTERUS WHICH WEIGHS APPROXIMATELY 100 GRAMS AND MEASURES 9.5 X 4.5 X 4 CM. THE SEROSAL SURFACE IS SMOOTH AND LIGHT FINN. THE CERVIX MEASURES APPROXIMATELY 3.5 X 3 CM. AND THE CERVICAL MUCOSAL IS SMOOTH AND LIGHT FINN. THE OS MEASURES APPROXIMATELY 1 CM. IN DIAMETER. THE ENDOCERVICAL MUCOSA IS SMOOTH AND THIN. THE ENDOMETRIAL CAVITY IS ROUGHLY TRIANGULAR SHAPED AND THE ENDOMETRIUM IS SMOOTH, LIGHT FINN AND THICKENED MEASURING APPROXIMATELY 2.5 MM. IN MAXIMUM THICKNESS. THE MYOMETRIUM MEASURES APPROXIMATELY 1.4 CM. IN MAXIMUM THICKNESS AND ON SERIAL SECTIONS REVEAL NO NODULES. BUCKLE ATTACHING MACHINE OPERATOR SECTIONS ARE SUBMITTED FOLLOWS A. ANTERIOR CERVIX B. POSTERIOR CERVIX C,D. ANTERIOR ENDOMETRIUM AND MYOMETRIUM E,F. POSTERIOR ENDOMETRIUM AND MYOMETRIUM G. RANDOM SECTIONS OF MYOMETRIUM SL/CS MICROSCOPIC EXAM MICROSCOPIC SECTION OF THE CERVIX ARE IN PART SURFACED BY A SQUAMOUS NORMALLY MATURING EPITHELIUM AND IN PART BY AN UNREMARKABLE COLUMNAR EPITHELIUM. ENDOCERVICAL GLANDS DISPLAY A NORMAL MORPHOLOGY. THE ENDOMETRIUM SHOWS A PROLIFERATIVE PATTERN. HYPERPLASIA OR MALIGNANCY IS NOT SEEN. THE MYOMETRIUM IS NORMAL. DIAGNOSIS DIAGNOSIS [1] UTERUS, VAGINAL HYSTERECTOMY CERVIX -- NO PATHOLOGIC DIAGNOSIS ENDOMETRIUM -- PROLIFERATIVE PATTERN MYOMETRIUM -- NO PATHOLOGIC DIAGNOSIS ESTEFANI/BIANKA Released By LUIS ENRIQUE ARRIETA CPT Code 92936 MISCELLANEOUS SAMPLES / Unknown 12/10/2003 12:37 PM CDT 12/10/2003 12:37 PM CDT Historical Provider MD LAB - PATHOLOGY/C YTOLOGY ORDERABLES
--- OUTSIDE RECORDS SUMMARY | 2024-08-14 17:54 | XMS_ITS ---
Author Organization 1 OF Arline murray [facility] Address [address] [place] [address] Care Team Providers Care Director Foundation Name Role Phone Jim Waite M.D. Primary Care Provider Lisa vailable Tyrell Stearns Unavailable [phone] REASON FOR VISIT SX options Encounters Encounter Location Date Provider Diagnosis 1 OF Arline Cee [facility] [address] [place] [address] 06/30/2023 Tyrell Stearns Plan Of Treatment No Information Progress Notes * Florecita CEE RDOB:[birth year] (58 yo F)Acc No.[id number]:06/30/2023 Patient: Asa LIANGFlorecita :1965 A ge:58 Y S ex:Female [address] [place], [address] * true * Date: Generated for Printi ng/Fastaceyg/eTransmitting on: 0 08/14/2024 05:54 PM BOX COVERER HAND
--- OUTSIDE RECORDS SUMMARY | 2024-08-14 17:54 | XMS_ITS | Referral Summary ---
Author Organization [facility] [employer] Address [address] [place] [address] Care Team Providers Care Manager Drive Name Role Phone Unavailable Primary Care Provider Unavailabl e Source Comments [facility] [employer],non-owned Affiliates and Associated Physician Practices is amultiple site organization consisting of ambulatory clinics and hospital sitesin [place], [place], [place] and [place]. This disclosure is being madepursuant to the Care Everywhere program and may not contain all information available regarding this patient. Last updated 18.[facility] [employer] Allergies Active Allergy Reactions Criticality Noted Date [...] Comments Blood Pressure 118/68 05/03/2018 5:48 PM PSYCHOLOGICAL AIDE Pulse 79 05/03/2018 5:48 PM PSYCHOLOGICAL AIDE Temperature 36.6 C (97.9 F) 05/03/2018 5:48 PM PSYCHOLOGICAL AIDE Respiratory Rate - - Oxygen Saturation 100% 05/03/2018 5:48 PM PSYCHOLOGICAL AIDE Inhaled Oxygen Concentration - - Weight 73.5 kg (162 lb) 05/03/2018 5:48 PM PSYCHOLOGICAL AIDE Height 167.6 cm (5' 6 ) 05/03/2018 5:48 PM PSYCHOLOGICAL AIDE Body Mass Index 26.15 05/03/2018 5:48 PM PSYCHOLOGICAL AIDE Plan of Treatment Not on file
--- OUTSIDE RECORDS SUMMARY | 2024-08-14 17:54 | XMS_ITS ---
Author Organization [address] [facility] Address [address] [facility] [address] [place] [address] Care Team Providers Care Wharf Worker Name Role Phone Jim Waite M.D. Primary Care Provider Tyrell Douglas Unavailable [phone] Allergies Allergen (clinical drug ingredient) Drug/Non Drug Allergy documented on EMR Reaction Allergy Type Onset Date Status erythromycin Erythromycin Unknown Drug Allergy A ctive Adhesive Unknown Allergy Active REASON FOR VISIT RT bunion f/u, discuss sx options Medications Medication SIG (Take, Route, Frequency, Duration) Notes Start Date End Date Status Vitamin D3 Active Estradiol Active Xyzal Not-Taking Bupropion & Diet Manage Prod Not-Taking Atorvastatin Calcium 10 MG 10 MG ORALLY DAILY Oral for 90 Days Active Triamterene Active Vital Signs Height 66 in 07/09/2023 Weight 170 lbs 07/09/2023 BMI 27.44 kg/m2 07/09/2023 Encounters Encounter Location Date Provider Diagnosis 1 OF Arline Rushing [facility] [address] [address] 07/09/2023 Tyrell Stearns Acquired hallux valgus, right M20.11 ; Neuritis of right foot G57.91 and Right foot pain M79.671 Assessments Encounter Date Diagnosis (ICD Code) Assessment Notes Treatment Notes Treatment Clinical Notes Section Notes 07/09/2023 Acquired hallux valgus, right (ICD-10 - M20.11) Evaluation today included a review of medical history, review of systems, discussion of exam findings, and review of diagnoses and treatment options. Reviewed surgical plan consisting of: Koehler bunionectomy with Ed osteotomy right foot. Reviewed potential risks and complications of foot and ankle surgery as noted on the consent form including infection, pain, chronic swelling, chronic pain, nerve damage, delayed healing, joint stiffness, CRPS, adverse reaction to anesthesia, suture or other implants, failure of the procedure(s) and/or recurrence of condition(s). No guarantees given. Specifically discussed the typical post-operative recovery period associated with the proposed procedures including, WB status, activity / employment restrictions and reminded patient of importance of compliance with post-operative instructions to reduce risk of complications and help insure optimal surgical outcome. Patient was given the surgical consent form to review and any questions were answered to the patient's satisfaction. The patient demonstrated understanding of the proposed procedure(s) and the above discussion and signed the Consent for Surgery form. 07/09/2023 Neuritis of right foot (ICD-10 - G57.91) 07/09/2023 Right foot pain (ICD-10 - M79.671) Plan Of Treatment Treatment Notes Assessment Notes Acquired hallux valgus, right Evaluation today included a review of medical history, review of systems, discussion of exam findings, and review of diagnoses and treatment options. Reviewed surgical plan consisting of: Koehler bunionectomy with Ed osteotomy right foot. Reviewed potential risks and complications of foot and ankle surgery as noted on the consent form including infection, pain, chronic swelling, chronic pain, nerve damage, delayed healing, joint stiffness, CRPS, adverse reaction to anesthesia, suture or other implants, failure of the procedure(s) and/or recurrence of condition(s). No guarantees given. Specifically discussed the typical post-operative recovery period associated with the proposed procedures including, WB status, activity / employment restrictions and reminded patient of importance of compliance with post-operative instructions to reduce risk of complications and help insure optimal surgical outcome. Patient was given the surgical consent form to review and any questions were answered to the patient's satisfaction. The patient demonstrated understanding of the proposed procedure(s) and the above discussion and signed the Consent for Surgery form. Next Appt Details Follow Up: after sx, Reason: Progress Notes * Florecita RUSHING RDOB:[birth year] (58 yo F)Acc No.[id number]:07/09/2023 Progress Notes Patient: Asa Florecita LIANG Provider: Paola Stearns DPM :1965 A ge:58 Y S ex:Female Date:07/09/2023 [facility] Pcp:Jim Waite M.D. Subjective: * Chief Complaints: * R T bunion f/u, discuss sx options * HPI: Vicente Bray assisting with visit:: HPI/Rooming: Dash song reason for visit:: 58 y/o female RTO for f/u of RT hallux valgus. A t last visit treatment consisted of educating the pt on conservative and non-conservative treatments. Per chart review, pt expresses interest in having RT bunion sx and would like to speak to Dr. Stearns today regarding a sx plan. Pt recently stopped Bupropion due to low WBC count. * ROS: * * Pre-op Surgical Risk Assessment: Current Weight: 1 75. M edication Allergies: z ythromyacin. H x of Heart conditions: D enies. C urrent use of high blood pressure medications or diuretics D enies. H x of Diabetes: D enies. H x of Vascular conditions: Denies. C urrent use of Blood thinners: D enies. H x of Kidney disease: D enies. H x of Respiratory conditions: Admits the following:. H x of Problems w/ Anesthesia: D enies. H x of Rheumatoid Arthritis: D enies. U se of Immunosuppressant meds: D enies. H x of Infectious disease: D enies. * Medical History: * Surgical History: N o Surgical History documented. * Hospitalization/Major Diagno stic Procedure: * Medications: T akingTriamterene Estradiol Vitamin D3 Atorvastatin Calcium 10 MG Tablet 10 MG ORALLY DAILY Oral Taking Triamterene Taking Estradiol Taking Vitamin D3 Taking Atorvastatin Calcium 10 MG Tablet 10 MG ORALLY DAILY Oral Not-Taking/PRNBupropion & Diet Manage Prod Xyzal Medication List reviewed and reconciled with the patientNot- Taking/PRN Bupropion & Diet Manage Prod Not-Taking/PRN Xyzal Medication List reviewed and reconciled with [...] with appropriate response to questions. Shoes today: B felipe tennis shoes. N ormal range of motion of the right first MTPJ without pain or crepitus appreciated and there is at least 10 degrees of ankle joint dorsiflexion appreciated bilateral lower extremity with the knees extended. I do appreciate pain with palpation to the dorsal and medial aspect of the right first metatarsal head where osseous prominence is appreciated and there is a positive Tinel's sign upon percussion of this area. No hypermobility is noted to the right first ray and there is some lateral deviation of the right hallux reducible in a flexible manner. Some mild friction induced erythema noted to the medial aspect of the right first MTPJ with negligible edema. Assessment: * Assessment: 1. A cquired hallux valgus, right - M20.11 (Primary) 2 . N euritis of right foot - G57.91 3 . R ight foot pain - M79.671 Plan: * Treatment: * Procedure Codes: * Preventive Medicine: Counseling: C are goal follow-up plan: Above Normal BMI Follow-up L ifestyle education regarding diet * Follow Up: a fter sx * Images: * R Sign off status: Completed true * Provider: Paola Stearns DPM Date: 0 07/09/2023 Generated for Rasta hawley/Sulema/Jo-Ann on: 0 08/14/2024 03:31 PM TAWER History and Physical Notes * HPI (History of Present Illness) Category Sub-Category Detail Notes Category Not es Primary reason for visit: 58 y/o female RTO for f/u of RT hallux valgus. At last visit treatment consisted of educating the pt on conservative and non-conservative treatments. Per chart review, pt expresses interest in having RT bunion sx and would like to speak to Dr. Stearns today regarding a sx plan. Pt recently stopped Bupropion due to low WBC count. MA assisting with visit: HPI/Rooming: Heather Examination Category Sub-Category Detail Notes Category Not es General Examination Mental status: Cooperative, Oriented to per son, place and time, Mood and affect: normal, Judgement and intellect: normal with appropriate response to questions Normal range of motion of the right first MTPJ without pain or crepitus appreciated and there is at least 10 degrees of ankle joint dorsiflexion appreciated bilateral lower extremity with the knees extended. I do appreciate pain with palpation to the dorsal and medial aspect of the right first metatarsal head where osseous prominence is appreciated and there is a positive Tinel's sign upon percussion of this area. No hypermobility is noted to the right first ray and there is some lateral deviation of the right hallux reducible in a flexible manner. Some mild friction induced erythema noted to the medial aspect of the right first MTPJ with negligible edema. Shoes today: [employer] shoes Exam unchanged from prior visit: Constitutional / Appearance: No acute di stress , Well nourished, Appropriate personal hygiene
--- OUTSIDE RECORDS SUMMARY | 2024-08-14 17:54 | XMS_ITS | Referral Summary ---
Author Organization [facility] Address [address] [place] [address] Care Team Providers Care Food Runner Name Role Phone Sandi Arvizu MD Unavailable [phone] Tammy Waite MD Primary Care Provider + Encounters Date Type Department Care Team Description 07/25/2024 3:10 PM TANK CARPENTER Clinical Support [facility] Allergy and Immunology [address] [place] [address] [phone] Allergic rhinitis due to animal (cat) (dog) hair and dander; Allergic rhinitis due to dust mite; Seasonal allergic rhinitis due to pollen 06/28/2024 2:30 PM TANK CARPENTER Clinical Support [facility] Allergy and Immunology [address] [place] [address] [phone] Allergic rhinitis due to animal (cat) (dog) hair and dander; Allergic rhinitis due to dust mite; Seasonal allergic rhinitis due to pollen 06/28/2024 2:45 PM TANK CARPENTER Office Visit [facility] Allergy and Immunology [address] [place] [address] [phone] Deann Maradiaga MD Allergic rhinitis due to dust mite (Primary Dx); Seasonal allergic rhinitis due to pollen; Allergic rhinitis due to animal (cat) (dog) hair and dander; Intermittent asthma without complication, unspecified asthma severity; Facial dermatitis 06/06/2024 3:10 PM TANK CARPENTER Clinical Support [facility] Allergy and Immunology [facility] [address] [place] [phone] Allergic rhinitis due to animal (cat) (dog) hair and dander; Allergic rhinitis due to dust mite; Seasonal allergic rhinitis due to pollen 05/30/2024 3:10 PM TANK CARPENTER Clinical Support [facility] Allergy and Immunology [facility] [address] [place] [phone] Allergic rhinitis due to animal (cat) (dog) hair and dander; Allergic rhinitis due to dust mite; Seasonal allergic rhinitis due to pollen from Last 3 Months Allergies Active Allergy Reactions Criticality Noted Date Comments Erythromycin Diarrhea,Stomach upset Low 12/29/2019 Medications triamterene-hyd roCHLOROthiazid e (triamterene-hy droCHLOROthiazi de) 37.5-25 mg per tablet/capsuleI ndications:swel ling Take 2 tablet/capsule by mouth nightly Active UNABLE TO FINDIndications :supplement Take 6 each by mouth bakery products checker before breakfast Super Collagen Active cholecalciferol (VITAMIN [...] (10/14/2020): Added automatically from request for surgery [id number] Assessment & Plan (11/27/2020 7:20 PM CDT): [...] (08/28/2020): Added automatically from request for surgery [id number] 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 [...] - if ASC-H, HSIL, AGC, recommend colposcopy Social History Tobacco Use Types Packs/Day Years [...] on file Legal Sex Female 9:12 AM TANK CARPENTER Gender Identity Not on file Sexual Orientation Not on file Last Filed Vital Signs Vital Sign Reading Time Taken Comments Blood Pressure 155/90 06/28/2024 2:29 PM TANK CARPENTER Pulse 74 06/28/2024 2:29 PM TANK CARPENTER Temperature 36.9 C (98.4 F) 06/28/2024 2:29 PM TANK CARPENTER Respiratory Rate 19 06/28/2024 2:29 PM TANK CARPENTER Oxygen Saturation 99% 06/28/2024 2:29 PM TANK CARPENTER Inhaled Oxygen Concentration - - Weight 83.9 kg (185 lb) 06/28/2024 2:29 PM TANK CARPENTER Height 167.6 cm (5' 6 ) 06/28/2024 2:29 PM TANK CARPENTER Body Mass Index 29.86 06/28/2024 2:29 PM TANK CARPENTER Plan of Treatment Not on file Procedures Procedure Name Priority Date/Time Associated Diagnosis [...] CDT 02/12/2023 4:29 PM CDT Narrative PATHOLOGY [facility] - 02/18/2023 2:30 PM CDT EPIC results best viewed via link to PDF [facility] [place] [address] Note to Patients: This report may contain [...] REPORT FINAL Patient Name: KIKO CEE Gender: Duglas : 1965 (Age: 57) Address: [address] [place], [place] [phone] Hospital #: [id number] Service: INSOLE TACK PULLER HAND Location: Patient Type: [facility] SPECIMEN Taken: 02/12/2023 Received: 02/12/2023 Accessioned: 02/15/2023 [...] was performed using the francisca HPV assay ([employer] This test has been modified from the middle school french teacher's instructions. Its performance characteristics were determined by [facility] in a manner consistent with CLIA requirements. This test has not been cleared or approved by the U.S. Food and Drug Administration. Test Performed by: [address] [address] In Tube Conversion Technician: Antonio Hanley M.D. Ph.D.; CLIA# [id number] This specimen has been rescreened in accordance with this laboratory's Head Of History Program. [facility]/02/18/2023 14:30 Ofelia Zhu MS, CT (ASCP) Report [...] clinical information and biopsy results as indicated. [facility] Clinical Laboratory Improvement Amendments (CLIA) mandate that cytologic and histologic results be correlated for laboratory quality assurance lead & improvement standards. FOR ALL HIGH-GRADE CASES [...] determined by the Surgical Pathology Department at [facility] as part of an ongoing business quality assurance analyst program and in compliance with federally mandated [...] determined by the Surgical Pathology Department of [facility]. It has not been cleared or approved by the U. S. Food and Drug Administration. Baylee Gibbs MD LAB CYTOLOGY [facility] DARI[facility] Final Result PATHOLOGY [facility] 3rd Floor [place], [place] [phone] * COLONOSCOPY (09/03/2020 11:22 AM CDT) Anatomical Region Laterality Modality Other Narrative Procedure Note Sandi Arvizu MD - 09/03/2020 11:22 AM CDT [facility] Endoscopy Lab Patient Name: Kiko Cee Procedure [...] 1000 mcg folic acid, 200 mgselinium and [phone] mg calcium. Exercise has been shownto be [...] screening purposes. Procedure Code(s): --- Professional --- 24494, Colonoscopy, flexible; diagnostic, including collection of specimen(s) by brushing or washing,when performed (separate procedure) Diagnosis Code(s): --- Professional --- Z12.11, Encounter for screening for malignantneoplasm of colon CPT copyright 2019 [employer]. All rights reserved. The codes documented in this report are preliminary and upon optical sales associate reviewmay be revised to meet current compliance requirements. Electronically signed by Sandi Arvizu M.D. Sandi Arvizu M.D. 09/03/2020 11:54:59 AM Number of Addenda: 0 Note Initiated On: 09/03/2020 11:22 AM us Sandi Arvizu MD ENDOSCOPY PROCEDURES Fi nal Result from Last 3 Months or Most Recently Relevant to Health Maintenance Insurance [facility] R [facility] Care Teams Food Runner Relationship Specialty Start Date End Date Tammy Waite MD PCP - General Family Medicine 10/05/23 Sandi Arvizu MD Consulting Physician Gastroenterology 11/13/20
== END 2024-08-14 15:20 | disposition home or self-care (01) ==
LOC: ANHLAB 15:20
PROVIDERS: PCP Family Medicine; Visit Provider Internal Medicine Hematology & Oncology
DX: D72.819 Decreased white blood cell count, unspecified (principal)
CPT/HCPCS: 36415; 80047; 85025

== ENCOUNTER 2024-08-23 10:40 | Outpatient (CLI) | payer OTHER, SELFPAY ==
--- OUTSIDE RECORDS SUMMARY | 2024-08-23 12:13 | XMS_ITS | Referral Summary ---
Author Organization [facility] Address [address] [place] [address] Care Team Providers Care Manufacturing Management Associate Name Role Phone Unavailable Primary Care Provider Unavailabl e Source Comments [facility],non-owned Affiliates and Associated Physician Practices is amultiple site organization consisting of ambulatory clinics and hospital sitesin [place], [place], [place]. This disclosure is being madepursuant to the Care Everywhere program and may not contain all information available regarding this patient. Last updated 18.[facility] Allergies Active Allergy Reactions Criticality Noted Date [...] Comments Blood Pressure 118/68 05/03/2018 5:48 PM BOILERMAKER'S ASSISTANT Pulse 79 05/03/2018 5:48 PM BOILERMAKER'S ASSISTANT Temperature 36.6 C (97.9 F) 05/03/2018 5:48 PM BOILERMAKER'S ASSISTANT Respiratory Rate - - Oxygen Saturation 100% 05/03/2018 5:48 PM BOILERMAKER'S ASSISTANT Inhaled Oxygen Concentration - - Weight 73.5 kg (162 lb) 05/03/2018 5:48 PM BOILERMAKER'S ASSISTANT Height 167.6 cm (5' 6 ) 05/03/2018 5:48 PM BOILERMAKER'S ASSISTANT Body Mass Index 26.15 05/03/2018 5:48 PM BOILERMAKER'S ASSISTANT Plan of Treatment Not on file
--- OUTSIDE RECORDS SUMMARY | 2024-08-23 12:13 | XMS_ITS | Encounter Summary ---
Author Organization [facility] Address [address] [place] [address] Phone Care Team Providers Care Rubber Mill Operator Name Role Phone Sandi Arvizu MD Unavailable [phone] Tammy Waite MD Primary Care Provider + [...] on file Legal Sex Female 9:12 AM SUPERVISOR FELTING Gender Identity Not on file Sexual Orientation [...] on filedocumented in this encounter Care Teams Rubber Mill Operator Relationship Specialty Start Date End Date Tammy Waite MD PCP - General Family Medicine 10/05/23 Sandi Arvizu MD Consulting Physician Gastroenterology 11/13/20 documented as of this encounter
--- OUTSIDE RECORDS SUMMARY | 2024-08-23 12:13 | XMS_ITS | Clinical Summary ---
Author Organization [facility] Address [address] [place] [address] Care Team Providers Care Zone Manager Name Role Phone Sandi Arvizu MD Unavailable [phone] Tammy Waite MD Primary Care Provider + Allergies Active Allergy Reactions Criticality Noted Date Comments Erythromycin Diarrhea,Stomach upset Low 12/29/2019 Medications triamterene-hyd roCHLOROthiazid e (triamterene-hy droCHLOROthiazi de) 37.5-25 mg per tablet/capsuleI ndications:swel ling Take 2 tablet/capsule by mouth nightly Active UNABLE TO FINDIndications :supplement Take 6 each by mouth pulp plant supervisor before breakfast Super Collagen Active cholecalciferol (VITAMIN [...] (10/14/2020): Added automatically from request for surgery [id number] Assessment & Plan (11/27/2020 7:20 PM CDT): [...] (08/28/2020): Added automatically from request for surgery [id number] 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 [...] Encounters Date Type Department Care Team Description 08/22/2024 3:10 PM EXPERIENCED TRUCK DRIVER Clinical Support [facility] Allergy and Immunology [address] [place] [phone] Allergic rhinitis due to animal (cat) (dog) hair and dander; Allergic rhinitis due to dust mite; Seasonal allergic rhinitis due to pollen 07/25/2024 3:10 PM EXPERIENCED TRUCK DRIVER Clinical Support [facility] Allergy and Immunology [address] [place] [phone] Allergic rhinitis due to animal (cat) (dog) hair and dander; Allergic rhinitis due to dust mite; Seasonal allergic rhinitis due to pollen 06/28/2024 2:45 PM EXPERIENCED TRUCK DRIVER Office Visit [facility] Allergy and Immunology [address] [place] [phone] Dy, Deann Magallanes MD Allergic rhinitis due to dust mite (Primary Dx); Seasonal allergic rhinitis due to pollen; Allergic rhinitis due to animal (cat) (dog) hair and dander; Intermittent asthma without complication, unspecified asthma severity; Facial dermatitis 06/28/2024 2:30 PM EXPERIENCED TRUCK DRIVER Clinical Support [facility] Allergy and Immunology [address] [place] [phone] Allergic rhinitis due to animal (cat) (dog) hair and dander; Allergic rhinitis due to dust mite; Seasonal allergic rhinitis due to pollen 06/06/2024 3:10 PM EXPERIENCED TRUCK DRIVER Clinical Support [facility] Allergy and Immunology [address] [place] [phone] Allergic rhinitis due to animal (cat) (dog) hair and dander; Allergic rhinitis due to dust mite; Seasonal allergic rhinitis due to pollen 05/30/2024 3:10 PM EXPERIENCED TRUCK DRIVER Clinical Support [facility] Allergy and Immunology [address] [place] [phone] Allergic rhinitis due to animal (cat) (dog) [...] on file Legal Sex Female 9:12 AM EXPERIENCED TRUCK DRIVER Gender Identity Not on file Sexual Orientation Not on file Obstetrics History Para Term AB IAB SAB Ectopic Multiple Livin g Live Births 2 2 2 0 0 2 Date Outcome GA Total Labor Labor/2nd/3rd Weight Sex Type Anes PTL Susy A1 A5 Name Clin Term Term Last Filed Vital Signs Vital Sign Reading Time Taken Comments Blood Pressure 155/90 06/28/2024 2:29 PM EXPERIENCED TRUCK DRIVER Pulse 74 06/28/2024 2:29 PM EXPERIENCED TRUCK DRIVER Temperature 36.9 C (98.4 F) 06/28/2024 2:29 PM EXPERIENCED TRUCK DRIVER Respiratory Rate 19 06/28/2024 2:29 PM EXPERIENCED TRUCK DRIVER Oxygen Saturation 99% 06/28/2024 2:29 PM EXPERIENCED TRUCK DRIVER Inhaled Oxygen Concentration - - Weight 83.9 kg (185 lb) 06/28/2024 2:29 PM EXPERIENCED TRUCK DRIVER Height 167.6 cm (5' 6 ) 06/28/2024 2:29 PM EXPERIENCED TRUCK DRIVER Body Mass Index 29.86 06/28/2024 2:29 PM EXPERIENCED TRUCK DRIVER Plan of Treatment Health Maintenance Due Date [...] CDT 02/12/2023 4:29 PM CDT Narrative PATHOLOGY [facility] - 02/18/2023 2:30 PM CDT EPIC results best viewed via link to PDF [facility] Laboratory [place] [address] Note to Patients: This report may contain [...] Gender: Duglas : 1965 (Age: 57) Address: [address] [place], [place] [phone] Hospital #: [id number] Service: [place] Location: Patient Type: [facility] SPECIMEN Taken: 02/12/2023 Received: 02/12/2023 Accessioned: 02/15/2023 [...] performed using the francisca HPV assay ([employer] This test has been modified from the bottom saw operator's instructions. Its performance characteristics were determined by [facility] in a manner consistent with CLIA requirements. This test has not been cleared or approved by the U.S. Food and Drug Administration. Test Performed by: [place] [address] Case Liner: Antonio Hanley M.D. Ph.D.; CLIA# [id number] This specimen has been rescreened in accordance with this laboratory's Motorcycle Technician Program. [facility]/02/18/2023 14:[address] (ASCP) Report Electronically Reviewed and Signed [...] clinical information and biopsy results as indicated. [facility] Clinical Laboratory Improvement Amendments (CLIA) mandate that cytologic and histologic results be correlated for laboratory associate quality engineer & improvement standards. FOR ALL HIGH-GRADE CASES [...] determined by the Surgical Pathology Department at [facility] as part of an ongoing quality tester program and in compliance with federally mandated [...] determined by the Surgical Pathology Department of [facility]. It has not been cleared or approved by the U. S. Food and Drug Administration. us Baylee Gibbs MD LAB CYTOLOGY ORDERA BLES Final Result PATHOLOGY [facility] 3rd Floor [place], [place] [phone] * COLONOSCOPY (09/03/2020 11:22 AM CDT) Anatomical Region Laterality Modality Other Narrative Procedure Note Sandi Arvizu MD - 09/03/2020 11:22 AM CDT [facility] Endoscopy Lab Patient Name: Kiko Cee Procedure [...] 1000 mcg folic acid, 200 mgselinium and 5633-3766 mg calcium. Exercise has been shownto be [...] screening purposes. Procedure Code(s): --- Professional --- 48682, Colonoscopy, flexible; diagnostic, including collection of specimen(s) by brushing or washing,when performed (separate procedure) Diagnosis Code(s): --- Professional --- Z12.11, Encounter for screening for malignantneoplasm of colon CPT copyright 2019 [employer]. All rights reserved. The codes documented in this report are preliminary and upon supervisor tile and mottle reviewmay be revised to meet current compliance requirements. Electronically signed by Sandi Arvizu M.D. Sandi Arvizu M.D. 09/03/2020 11:54:59 AM Number of Addenda: 0 Note Initiated On: 09/03/2020 11:22 AM Sandi Arvizu MD ENDOSCOPY PROCEDURES Fi nal Result from Last 3 Months or Most Recently Relevant to Health Maintenance Insurance [facility] Care Teams Zone Manager Relationship Specialty Start Date End Date Tammy Waite MD PCP - General Family Medicine 10/05/23 Sandi Arvizu MD Consulting Physician Gastroenterology 11/13/20
--- OUTSIDE RECORDS SUMMARY | 2024-08-23 12:13 | XMS_ITS | Encounter Summary ---
Author Organization [facility] Address [address] [place] [address] Phone Care Team Providers Care Smocking Machine Operator Name Role Phone Sandi Arvizu MD Unavailable [phone] Tammy Waite MD Primary Care Provider + Reason for Visit * Reason Comments Injections Encounter Details Date Type Department Care Team (Latest Contact Info) Description 08/22/2024 3:10 PM LABOR RELATIONS CONSULTANT Clinical Support [facility] Allergy and Immunology [address] [place] [phone] Allergic rhinitis due to animal (cat) (dog) hair and dander; Allergic rhinitis due to dust mite; Seasonal allergic rhinitis due to pollen Social History Tobacco Use Types Packs/Day Years [...] on file Legal Sex Female 9:12 AM LABOR RELATIONS CONSULTANT Gender Identity Not on file Sexual Orientation Not on file documented as of this encounter Progress Notes * So Luis RN - 08/22/2024 3:10 PM CST A summary of Florecita Rushing`s injection. Generated date: 2024-08-22 The injection was administered by [email or web address] at 2024-08-22 15:20:25. The patient received a 0.3 mL dose from Rx #[id number] out of the 1:1/RED vial, named Vial 1 Grasses\Mites\Trees\UF Dog, in their Upper left arm. Note: Next step per plan. No dose rules adjustments required. Recorded local reaction(s): None. Recorded systemic reaction: N. Vial Concentration:1 Vial Color:RED A summary of Florecita Rushing`s injection. Generated date: 2024-08-22 The injection was administered by [email or web address] at 2024-08-22 15:20:25. The patient received a 0.3 mL dose from Rx #[id number] out of the 1:1/RED vial, named Vial 2 Cat\Weeds,in their Upper right arm. Note: Next step per plan. No dose rules adjustments required. Recorded local reaction(s): None. Recorded systemic reaction: N. Vial Concentration:1 Vial Color:RED R RELATIONS CONSULTANT documented in this encounter Plan of Treatment Not on file documented as of this encounter Visit Diagnoses Diagnosis Allergic rhinitis due to animal (cat) (dog) hair and dander Allergic rhinitis due to dust mite Seasonal allergic rhinitis due to pollen documented in this encounter Orders Procedures Count Last Ordered Date First Orde red Date IMMUNOTHERAPY PRESCRIPTION 1 08/22/2024 documented in this encounter Care Teams Smocking Machine Operator Relationship Specialty Start Date End Date Tammy Waite MD PCP - General Family Medicine 10/05/23 Sandi Arvizu MD Consulting Physician Gastroenterology 11/13/20 documented as of this encounter
--- OUTSIDE RECORDS SUMMARY | 2024-08-23 12:13 | XMS_ITS | Clinical Summary ---
Author Organization [facility] Address [address] [place] [address] Care Team Providers Care Sole Edge Inker Machine Name Role Phone Unavailable Primary Care Provider Unavailabl e Social History Tobacco Use Types Packs/Day Years Used Date Smoking Tobacco: Never Assessed Comments Unknown Sex and Gender Information Value Date Recorded Sex Assigned at Not on file Legal Sex Female 2:55 PM MUD ENGINEER Gender Identity Not on file Sexual Orientation [...]
--- OUTSIDE RECORDS SUMMARY | 2024-08-23 12:13 | XMS_ITS | Clinical Summary ---
Author Organization [facility] Address [address] [place] [address] Care Team Providers Care Credit Collections Clerk Name Role Phone Tammy Waite MD Primary Care Provider Allergies Active Allergy Reactions Criticality Noted Date [...] at bedtime. Active iron/folic ac/vit Bcomp,C/min (B [id number] E-FA ORAL) Take by mouth daily. Active cetirizine (ZyrTEC) 10 mg tablet Take 20 mg by mouth daily. Active montelukast (SINGULAIR) 10 mg tablet Take 10 mg by mouth daily. 09/17/2023 09/17/19 Active Active Problems No known active problems Encounters Date Type Department Care Team Description 08/22/2024 External Device Data STL ABSTRACTION Provider, Abstract 08/14/2024 3:30 PM FILM TECHNICIAN Office Visit [facility] Oncology and Hematology [place] [address] [place] [address] Esdras Andres MD Leukopenia, unspecified [...] on file Legal Sex Female 11:30 AM FILM TECHNICIAN Gender Identity Not on file Sexual Orientation Not on file Last Filed Vital Signs Vital Sign Reading Time Taken Comments Blood Pressure 137/81 08/14/2024 3:35 PM FILM TECHNICIAN Pulse 67 08/14/2024 3:35 PM FILM TECHNICIAN Temperature 36.6 C (97.9 F) 08/14/2024 3:35 PM FILM TECHNICIAN Respiratory Rate 17 08/14/2024 3:35 PM FILM TECHNICIAN Oxygen Saturation 96% 08/14/2024 3:35 PM FILM TECHNICIAN Inhaled Oxygen Concentration - - Weight 84.9 kg (187 lb 3.2 oz) 08/14/2024 3:35 P M FILM TECHNICIAN Height 167.6 cm (5' 6 ) 06/29/2023 2:37 PM FILM TECHNICIAN Body Mass Index 30.21 06/29/2023 2:37 PM FILM TECHNICIAN Plan of Treatment Health Maintenance Due Date Last Done Comments Pre-Diabetes and Diabetes Screening 1965 DTAP/TDAP/TD VACCINES (1 - Tdap) 1986 HEPATITIS B VACCINES (1 of 3 - 19+ 3-dose series) 1986 BREAST CANCER SCREENING 2007 FIT-DNA Q 3 years 2012 FIT/FOBT Q 1 year 2012 Flex Sig/CT Colonography Q 5 years 2012 ZOSTER VACCINE (1 of 2) 2017 INFLUENZA VACCINE (#1) 2024 CERVICAL CANCER SCREENING 02/12/2026 02/12/2023 COLORECTAL SCREENING 09/03/2030 09/03/2020, 09/04/19 21 Colorectal Cancer Screening 09/03/2030 Insurance [facility] [address] [address] [place] [address] [place] Care Teams Credit Collections Clerk Relationship Specialty Start Date End Date Tammy Waite MD [address] [facility] [address] [address] PCP - General Family Practice 06/29/23
--- OUTSIDE RECORDS SUMMARY | 2024-08-23 12:13 | XMS_ITS | Referral Summary ---
Author Organization [facility] Address [address] [place] [address] Care Team Providers Care Automation Manager Name Role Phone Sandi Arvizu MD Unavailable [phone] Tammy Waite MD Primary Care Provider + Encounters Date Type Department Care Team Description 08/22/2024 3:10 PM SAFE DEPOSIT BOX RENTAL CLERK Clinical Support [facility] Allergy and Immunology [address] [place] [phone] Allergic rhinitis due to animal (cat) (dog) hair and dander; Allergic rhinitis due to dust mite; Seasonal allergic rhinitis due to pollen 07/25/2024 3:10 PM SAFE DEPOSIT BOX RENTAL CLERK Clinical Support [facility] Allergy and Immunology [address] [place] [phone] Allergic rhinitis due to animal (cat) (dog) hair and dander; Allergic rhinitis due to dust mite; Seasonal allergic rhinitis due to pollen 06/28/2024 2:30 PM SAFE DEPOSIT BOX RENTAL CLERK Clinical Support [facility] Allergy and Immunology [address] [place] [phone] Allergic rhinitis due to animal (cat) (dog) hair and dander; Allergic rhinitis due to dust mite; Seasonal allergic rhinitis due to pollen 06/28/2024 2:45 PM SAFE DEPOSIT BOX RENTAL CLERK Office Visit [facility] Allergy and Immunology [address] [place] [address], [place] [address] Dy, Deann Magallanes MD Allergic rhinitis due to dust mite (Primary Dx); Seasonal allergic rhinitis due to pollen; Allergic rhinitis due to animal (cat) (dog) hair and dander; Intermittent asthma without complication, unspecified asthma severity; Facial dermatitis 06/06/2024 3:10 PM SAFE DEPOSIT BOX RENTAL CLERK Clinical Support [facility] Allergy and Immunology [address] [place] [phone] Allergic rhinitis due to animal (cat) (dog) hair and dander; Allergic rhinitis due to dust mite; Seasonal allergic rhinitis due to pollen 05/30/2024 3:10 PM SAFE DEPOSIT BOX RENTAL CLERK Clinical Support [facility] Allergy and Immunology [address] [place] [phone] Allergic rhinitis due to animal (cat) (dog) [...] FINDIndications :supplement Take 6 each by mouth quality assurance monitor body before breakfast Super Collagen Active cholecalciferol (VITAMIN [...] (10/14/2020): Added automatically from request for surgery [id number] Assessment & Plan (11/27/2020 7:20 PM CDT): [...] (08/28/2020): Added automatically from request for surgery [id number] 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 [...] on file Legal Sex Female 9:12 AM SAFE DEPOSIT BOX RENTAL CLERK Gender Identity Not on file Sexual Orientation Not on file Last Filed Vital Signs Vital Sign Reading Time Taken Comments Blood Pressure 155/90 06/28/2024 2:29 PM SAFE DEPOSIT BOX RENTAL CLERK Pulse 74 06/28/2024 2:29 PM SAFE DEPOSIT BOX RENTAL CLERK Temperature 36.9 C (98.4 F) 06/28/2024 2:29 PM SAFE DEPOSIT BOX RENTAL CLERK Respiratory Rate 19 06/28/2024 2:29 PM SAFE DEPOSIT BOX RENTAL CLERK Oxygen Saturation 99% 06/28/2024 2:29 PM SAFE DEPOSIT BOX RENTAL CLERK Inhaled Oxygen Concentration - - Weight 83.9 kg (185 lb) 06/28/2024 2:29 PM SAFE DEPOSIT BOX RENTAL CLERK Height 167.6 cm (5' 6 ) 06/28/2024 2:29 PM SAFE DEPOSIT BOX RENTAL CLERK Body Mass Index 29.86 06/28/2024 2:29 PM SAFE DEPOSIT BOX RENTAL CLERK Plan of Treatment Not on file Procedures [...] CDT 02/12/2023 4:29 PM CDT Narrative PATHOLOGY [facility] - 02/18/2023 2:30 PM CDT EPIC results best viewed via link to PDF [facility] [place] [address] Note to Patients: This report may contain [...] Gender: Duglas : 1965 (Age: 57) Address: [address] [place] [address] Hospital #: [id number] Service: CHARTER PILOT Location: Patient Type: [facility] SPECIMEN Taken: 02/12/2023 Received: 02/12/2023 Accessioned: 02/15/2023 [...] performed using the francisca HPV assay ([employer] This test has been modified from the bike technician's instructions. Its performance characteristics were determined by [facility] in a manner consistent with CLIA requirements. This test has not been cleared or approved by the U.S. Food and Drug Administration. Test Performed by: [place] [address] Forest Logistics Manager: Antonio Hanley M.D. Ph.D.; CLIA# [id number] This specimen has been rescreened in accordance with this laboratory's Head Scorer Program. [facility]/02/18/2023 14:[address] (ASCP) Report [...] clinical information and biopsy results as indicated. [facility] Clinical Laboratory Improvement Amendments (CLIA) mandate that cytologic and histologic results be correlated for laboratory senior quality methods specialist & improvement standards. FOR ALL HIGH-GRADE [...] determined by the Surgical Pathology Department at [facility] as part of an ongoing quality assurance monitor body program and in compliance with federally mandated [...] determined by the Surgical Pathology Department of [facility]. It has not been cleared or approved by the U. S. Food and Drug Administration. Baylee Gibbs MD LAB CYTOLOGY ORDERA BLEDash Final Result PATHOLOGY [facility] 3rd Floor [place], [place] [phone] * COLONOSCOPY (09/03/2020 11:22 AM CDT) Anatomical Region Laterality Modality Other Narrative Procedure Note Sandi Arvizu MD - 09/03/2020 11:22 AM CDT [facility] Endoscopy Lab Patient Name: Kiko Cee [...] 1000 mcg folic acid, 200 mgselinium and 2168-2622 mg calcium. Exercise has been shownto be [...] screening purposes. Procedure Code(s): --- Professional --- 34542, Colonoscopy, flexible; diagnostic, including collection of specimen(s) by brushing or washing,when performed (separate procedure) Diagnosis Code(s): --- Professional --- Z12.11, Encounter for screening for malignantneoplasm of colon CPT copyright 2019 [employer]. All rights reserved. The codes documented in this report are preliminary and upon law reporter reviewmay be revised to meet current compliance requirements. Electronically signed by Sandi Arvizu M.D. Sandi Arvizu M.D. 09/03/2020 11:54:59 AM Number of Addenda: 0 Note Initiated On: 09/03/2020 11:22 AM Sandi Arvizu MD ENDOSCOPY PROCEDURES Fi nal Result from Last 3 Months or Most Recently Relevant to Health Maintenance Insurance [facility] Member Subscriber Plan / Payer (Ef fective 2020-Present) Name:Kiko Ceeee Relation to Subscriber:Self Name:Kiko Cee Payer ID:[id number] (NAIC) Type:[facility] HMO/PPO Address: [address] [facility] Care Teams Automation Manager Relationship Specialty Start Date End Date Tammy Waite MD PCP - General Family Medicine 10/05/23 Sandi Arvizu MD Consulting Physician Gastroenterology 11/13/20
--- OUTSIDE RECORDS SUMMARY | 2024-08-23 12:13 | XMS_ITS | Patient Health Summary ---
Author Organization [facility] [employer] Address [address] [place] [address] Care Team Providers Care Wardrobe Attendant Name Role Phone Unavailable Primary Care Provider Unavailabl e Note from [facility],non-owned Affiliates and Associated Physician Practices is amultiple site organization consisting of ambulatory clinics and hospital sitesin [place], [place], [place] and [place]. This disclosure is being madepursuant to the Care Everywhere program and may not contain all information available regarding this patient. Last updated 18.[facility] [employer] Allergies * Erythromycin(Nausea and/or Vomiting) Medications * [...] Comments Blood Pressure 118/68 05/03/2018 5:48 PM MAT GAUGER Pulse 79 05/03/2018 5:48 PM MAT GAUGER Temperature 36.6 C (97.9 F) 05/03/2018 5:48 PM MAT GAUGER Respiratory Rate - - Oxygen Saturation 100% 05/03/2018 5:48 PM MAT GAUGER Inhaled Oxygen Concentration - - Weight 73.5 kg (162 lb) 05/03/2018 5:48 PM MAT GAUGER Height 167.6 cm (5' 6 ) 05/03/2018 5:48 PM MAT GAUGER Body Mass Index 26.15 05/03/2018 5:48 PM MAT GAUGER Procedures * STREP A SCREEN - POINT OF CARE (AMB) STL(Performed 05/03/2018) Performed for Acute streptococcal pharyngitis * GROSS + MICRO EXAM(Performed 12/10/2003) Results * (ABNORMAL) STREP A SCREEN - POINT OF CARE (AMB) STL (05/03/2018) Strep A Rapid POCT Positive(A) Negative Strep A Internal Control Present Lot # [id number] Expiration Date 10/13/2019 Throat ENTIRE THROAT (SURFACE [...] AND ON SERIAL SECTIONS REVEAL NO NODULES. HISTORIAN RESEARCH ASSISTANT SECTIONS ARE SUBMITTED FOLLOWS A. ANTERIOR CERVIX [...] Released By LUIS ENRIQUE ARRIETA CPT Code 87182 MISCELLANEOUS SAMPLES / Unknown 12/10/2003 12:37 PM CDT 12/10/2003 12:37 PM CDT Historical Provider MD LAB - PATHOLOGY/C YTOLOGY ORDERABLES
--- OUTSIDE RECORDS SUMMARY | 2024-08-23 12:13 | XMS_ITS | Clinical Summary ---
Author Organization [facility] Address [address] [place] [address] Care Team Providers Care Forgesmith Name Role Phone Unavailable Primary Care Provider Unavailabl e Source Comments [facility],non-owned Affiliates and Associated Physician Practices is amultiple site organization consisting of ambulatory clinics and hospital sitesin [place], [place], [place] and [place]. This disclosure is being madepursuant to the Care Everywhere program and may not contain all information available regarding this patient. Last updated 18.[facility] Allergies Active Allergy Reactions Criticality Noted Date [...] Comments Blood Pressure 118/68 05/03/2018 5:48 PM FORESTER AIDE Pulse 79 05/03/2018 5:48 PM FORESTER AIDE Temperature 36.6 C (97.9 F) 05/03/2018 5:48 PM FORESTER AIDE Respiratory Rate - - Oxygen Saturation 100% 05/03/2018 5:48 PM FORESTER AIDE Inhaled Oxygen Concentration - - Weight 73.5 kg (162 lb) 05/03/2018 5:48 PM FORESTER AIDE Height 167.6 cm (5' 6 ) 05/03/2018 5:48 PM FORESTER AIDE Body Mass Index 26.15 05/03/2018 5:48 PM FORESTER AIDE Plan of Treatment Health Maintenance Due Date [...] FLORECITA CEE Personal/Famil y Spouse [address] [place] [phone] FLORECITA CEE Personal/Famil y Spouse [address]
--- OUTSIDE RECORDS SUMMARY | 2024-08-23 12:14 | XMS_ITS | Encounter Summary ---
Author Organization [facility] Address [address] [place] [address] Care Team Providers Care Mine Safety Manager Name Role Phone Tammy Waite MD Primary Care Provider [phone] Encounter Details Date Type Department Care Team (Late st Contact Info) Description 08/22/2024 External Device Data [facility] ABSTRACTION Provider, Abstract NO ADDRESS ON FILE Social History Tobacco Use Types Packs/Day Years Used Date Smoking Tobacco: Never Smokeless Tobacco: Never Alcohol Use Standard Drinks/Week Comments Yes 0 (1 standard drink = 0.6 oz pur e alcohol) Socially Comments Unknown Sex and Gender Information Value Date Recorded Sex Assigned at Not on file Legal Sex Female 11:30 AM VAULT MANAGER Gender Identity Not on file Sexual Orientation Not on file documented as of this encounter Plan of Treatment Not on file documented as of this encounter Visit Diagnoses Not on filedocumented in this encounter Care Teams Mine Safety Manager Relationship Specialty Start Date End Date Tammy Waite MD [address] [facility] [place][Note 2] [address] [address] PCP - General Family Practice 06/29/23 documented as of this encounter
[2024-08-23 13:02] LABS: Alanine Aminotransferase 115 U/L (6-35); Albumin Level 4.3 g/dL (3.5-5.1); Alkaline Phosphatase 97 U/L (38-126); Aspartate Amino Transferase 70 U/L (14-36); Bilirubin,Total 0.6 mg/dL (0.2-1.3)
[2024-08-23 13:59] LABS: Vitamin B12 > 1000.0 pg/mL (239-931)
== END 2024-08-23 10:41 | disposition home or self-care (01) ==
LOC: ANHGOSHLAB 10:43
PROVIDERS: PCP Family Medicine; Visit Provider Family Medicine
DX: R94.5 Abnormal results of liver function studies (principal); R79.89 Other specified abnormal findings of blood chemistry; R63.5 Abnormal weight gain
CPT/HCPCS: 36415; 80076; 82607; 84443

== ENCOUNTER 2024-09-11 14:29 | Outpatient (CLI) | payer OTHER, SELFPAY ==
--- NOTE | ~2024-09-11 | MM_ITS ---
EXAMINATION: MM screening [place] BI w pepe HISTORY: Screening TECHNIQUE: Craniocaudal and mediolateral oblique 3-D tomosynthesis images were obtained and synthetic 2-D images were generated. CAD analysis was submitted and interpreted. COMPARISON: 05/20/2023 and dating back to 01/20/2019 BREAST PARENCHYMAL COMPOSITION: The breasts are heterogeneously dense, which may obscure small masses . FINDINGS: A microclip is identified within the upper outer posterior left breast, consistent with pat ient's history. Stable parenchymal pattern without suspicious microcalcifications, architectural distortion, discrete masses or significant asymmetry. IMPRESSION: 1. No mammographic evidence of malignancy. 2. Recommend routine screening mammography in one year. BI-RADS Category 2: Benign finding(s). Reviewed, dictated and finalized at location A.
--- OUTSIDE RECORDS SUMMARY | 2024-09-11 16:49 | XMS_ITS | Patient Health Record ---
Author Organization 1 OF Arline murray [facility] Address [address] [place] [address] Care Team Providers Care Concrete Mixer Truck Driver Name Role Phone Jim Waite M.D. Primary Care Provider Lisa solokamilla StearnsTyrell Unavailable [phone] Allergies Allergen (clinical drug ingredient) Drug/Non Drug [...] Problem Status W/U Status Risk Notes Problem [id number] Neuritis of right foot (G57.91) Active confirmed Plan Of Treatment No Information Insurance Providers Payer Name Payer Address Payer Phone Subscriber Number Group Number Insured Name Patient Relationship to Insured Coverage Start Date Coverage End Date [employer] [address] [address] [place] [address] [id number] Florecita Rushing Self - patient is the insured [facility] [address] [address] [place] [address] [phone] [id number] Florecita Rushing Self - patient is the insured Medical (General) History Medical History History ICD Code anemia Arthritis asthma migraine headaches celiac disease
--- OUTSIDE RECORDS SUMMARY | 2024-09-11 16:49 | XMS_ITS ---
Author Organization 1 OF Arlien murray [facility] Address [address] [place] [address] Care Team Providers Care Automatic Trimming Sewer Name Role Phone Jim Waite M.D. Primary Care Provider Tyrell Douglas Unavailable [phone] Allergies Allergen (clinical drug ingredient) Drug/Non Drug [...] Problem Status W/U Status Risk Notes Problem [id number] Neuritis of right foot (G57.91) Active confirmed Vital Signs Height 66 in 05/18/2023 Weight 170 lbs 05/18/2023 BMI 27.44 kg/m2 05/18/2023 Encounters Encounter Location Date Provider Diagnosis 1 OF [facility] [address] [place] [phone] 05/18/2023 Tyrell Stearns Acquired hallux valgus, right [...] * JAYE Florecita RDOB:[birth year] (57 yo F)Acc No.[id number]:05/18/2023 Progress Notes Patient: Florecita [facility] Provider: Paola Stearns DPM :1965 A ge:57 Y S ex:Female Date:05/18/2023 Address:[address] [place] [address] Pcp:Jim Waite M.D. Subjective: * Chief Complaints: * R T Bunion * HPI: M Asa assisting with visit:: HPI/Rooming: Kalyn song reason for visit:: Pain level: 5 -6/10. [...] Moderate. Living with: alone. 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 * Medications: T akingTriamterene Bupropion & Diet [...] Follow Up: p rn * Images: * OPERATOR Sign off status: Completed true * Provider: Paola Stearns DPM Date: 07/18/2022 Generated for Rasta hawley/Sulema/Felicitasitting on: 0 09/11/2024 04:49 PM CDT History and Physical Notes * HPI (History [...]
--- OUTSIDE RECORDS SUMMARY | 2024-09-11 16:49 | XMS_ITS ---
Author Organization 1 OF Arline murray [facility] Address [address] [place] [address] Care Team Providers Care Aquatic Habitat Biologist Name Role Phone Jim Waite M.D. Primary Care Provider Lisa vailable Tyrell Stearns Unavailable [phone] REASON FOR VISIT SX options Encounters Encounter Location Date Provider Diagnosis 1 OF Arline Cee [facility] [address] [place] [address] 06/30/2023 Tyrell Stearns Plan Of Treatment No Information Progress Notes * Florecita CEE RDOB:[birth year] (58 yo F)Acc No.[id number]:06/30/2023 Patient: Asa LIANGFlorecita :1965 A ge:58 Y S ex:Female Address:[address] [place], [address] * true * Date: Generated for Printi ng/Fastaceyg/eTransmitting on: 0 09/11/2024 04:48 PM CDT
--- OUTSIDE RECORDS SUMMARY | 2024-09-11 16:49 | XMS_ITS | Clinical Summary ---
Author Organization [facility] [employer] Address [address] [place] [address] Care Team Providers Care Flow Nurse Name Role Phone Unavailable Primary Care Provider Unavailabl e Source Comments [facility] [employer],non-owned Affiliates and Associated Physician Practices is amultiple site organization consisting of ambulatory clinics and hospital sitesin [place], [place], [place] and [place]. This disclosure is being madepursuant to the Care Everywhere program and may not contain all information available regarding this patient. Last updated 18.[facility] [employer] Allergies Active Allergy Reactions Criticality Noted Date [...] Comments Blood Pressure 118/68 05/03/2018 5:48 PM WELDER GUN Pulse 79 05/03/2018 5:48 PM WELDER GUN Temperature 36.6 C (97.9 F) 05/03/2018 5:48 PM WELDER GUN Respiratory Rate - - Oxygen Saturation 100% 05/03/2018 5:48 PM WELDER GUN Inhaled Oxygen Concentration - - Weight 73.5 kg (162 lb) 05/03/2018 5:48 PM WELDER GUN Height 167.6 cm (5' 6 ) 05/03/2018 5:48 PM WELDER GUN Body Mass Index 26.15 05/03/2018 5:48 PM WELDER GUN Plan of Treatment Health Maintenance Due Date [...] to complete this topic MENINGOCOCCAL (Group B) VACC INE SHARED DECISION-MAKING Aged Out No longer eligibl e based on patient's age to complete this topic MENINGOCOCCAL GROUPS A/C/Y/W VACCINE Aged Out No longer eligible b ased on patient's age to complete this topic PNEUMOCOCCAL VACCINE Aged Out No long er eligible based on patient's age to complete this topic [address] FLORECITA CEE Personal/Famil y Spouse [address] FLORECITA CEE Personal/Famil y Spouse [address] [place] [phone]
--- OUTSIDE RECORDS SUMMARY | 2024-09-11 16:49 | XMS_ITS | Clinical Summary ---
Author Organization [facility] Address [address] [place] [address] Care Team Providers Care Laborer Aquatic Life Name Role Phone Unavailable Primary Care Provider Unavailabl e Social History Tobacco Use Types Packs/Day Years Used Date Smoking Tobacco: Never Assessed Comments Unknown Sex and Gender Information Value Date Recorded Sex Assigned at Not on file Legal Sex Female 2:55 PM JUNIOR PARALEGAL Gender Identity Not on file Sexual Orientation [...]
--- OUTSIDE RECORDS SUMMARY | 2024-09-11 16:49 | XMS_ITS | Referral Summary ---
Author Organization [facility] Address [address] [place] [address] Care Team Providers Care Direct Chill Caster Name Role Phone Sandi Arvizu MD Unavailable [phone] Tammy Waite MD Primary Care Provider + Encounters Date Type Department Care Team Description 08/22/2024 3:10 PM AIR TRAFFIC CONTROL OPERATOR Clinical Support [facility] Allergy and Immunology [address] [place] [phone] Allergic rhinitis due to animal (cat) (dog) hair and dander; Allergic rhinitis due to dust mite; Seasonal allergic rhinitis due to pollen 07/25/2024 3:10 PM AIR TRAFFIC CONTROL OPERATOR Clinical Support [facility] Allergy and Immunology [address] [place] [phone] Allergic rhinitis due to animal (cat) (dog) hair and dander; Allergic rhinitis due to dust mite; Seasonal allergic rhinitis due to pollen 06/28/2024 2:30 PM AIR TRAFFIC CONTROL OPERATOR Clinical Support [facility] Allergy and Immunology [address] [place] [phone] Allergic rhinitis due to animal (cat) (dog) hair and dander; Allergic rhinitis due to dust mite; Seasonal allergic rhinitis due to pollen 06/28/2024 2:45 PM AIR TRAFFIC CONTROL OPERATOR Office Visit [facility] Allergy and Immunology [address] [place] [address], [place] [address] Dy, Deann Magallanes MD Allergic rhinitis due to dust mite (Primary Dx); Seasonal allergic rhinitis due to pollen; Allergic rhinitis due to animal (cat) (dog) hair and dander; Intermittent asthma without complication, unspecified asthma severity; Facial dermatitis from Last 3 Months Allergies Active Allergy Reactions Criticality Noted Date Comments Erythromycin Diarrhea,Stomach upset Low 12/29/2019 Medications triamterene-hyd roCHLOROthiazid e (triamterene-hy droCHLOROthiazi de) 37.5-25 mg per tablet/capsuleI ndications:swel ling Take 2 tablet/capsule by mouth nightly Active UNABLE TO FINDIndications :supplement Take 6 each by mouth roofing laborer before breakfast Super Collagen Active cholecalciferol (VITAMIN [...] (10/14/2020): Added automatically from request for surgery [id number] Assessment & Plan (11/27/2020 7:20 PM CDT): [...] (08/28/2020): Added automatically from request for surgery [id number] 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 [...] on file Legal Sex Female 9:12 AM AIR TRAFFIC CONTROL OPERATOR Gender Identity Not on file Sexual Orientation Not on file Last Filed Vital Signs Vital Sign Reading Time Taken Comments Blood Pressure 155/90 06/28/2024 2:29 PM AIR TRAFFIC CONTROL OPERATOR Pulse 74 06/28/2024 2:29 PM AIR TRAFFIC CONTROL OPERATOR Temperature 36.9 C (98.4 F) 06/28/2024 2:29 PM AIR TRAFFIC CONTROL OPERATOR Respiratory Rate 19 06/28/2024 2:29 PM AIR TRAFFIC CONTROL OPERATOR Oxygen Saturation 99% 06/28/2024 2:29 PM AIR TRAFFIC CONTROL OPERATOR Inhaled Oxygen Concentration - - Weight 83.9 kg (185 lb) 06/28/2024 2:29 PM AIR TRAFFIC CONTROL OPERATOR Height 167.6 cm (5' 6 ) 06/28/2024 2:29 PM AIR TRAFFIC CONTROL OPERATOR Body Mass Index 29.86 06/28/2024 2:29 PM AIR TRAFFIC CONTROL OPERATOR Plan of Treatment Not on file Procedures [...] CDT 02/12/2023 4:29 PM CDT Narrative PATHOLOGY [facility] - 02/18/2023 2:30 PM CDT EPIC results best viewed via link to PDF [facility] [place] [address] Note to Patients: This report may contain [...] Gender: F : 1965 (Age: 57) Address: [address] [place], [place] [phone] Hospital #: [id number] Service: POWER LINE INSTALLER AND REPAIRER Location: Patient Type: [facility] SPECIMEN Taken: 02/12/2023 Received: 02/12/2023 [...] performed using the francisca HPV assay ([employer] This test has been modified from the crusher loader equipment operator's instructions. Its performance characteristics were determined by [facility] in a manner consistent with CLIA requirements. This test has not been cleared or approved by the U.S. Food and Drug Administration. Test Performed by: [address] [address] [address] Advocate: Antonio Hanley M.D. Ph.D.; CLIA# [id number] This specimen has been rescreened in accordance with this laboratory's Technician Chemical Cleaning Program. [facility]/02/18/2023 14:30 Ofelia Zhu MS, CT (ASC) Report Electronically Reviewed and Signed Out By MADDY Pierce(ASC) 02/18/2023 14:30:44 Cervicovaginal Cytology (Pap Test) Disclaimer: The Pap test is a screening test used to detect cervical cancer and its precursors; it is not a diagnostic procedure. False negative and false positive results do occur. Pap test results should be interpreted in the context of pertinent clinical information and biopsy results as indicated. [facility] Clinical Laboratory Improvement Amendments (CLIA) mandate that cytologic and histologic results be correlated for laboratory ict quality assurance engineer & improvement standards. FOR ALL HIGH-GRADE [...] determined by the Surgical Pathology Department at [facility] as part of an ongoing quality cloth tester program and in compliance with federally [...] determined by the Surgical Pathology Department of [facility]. It has not been cleared or approved by the U. S. Food and Drug Administration. us Baylee Gibbs MD LAB CYTOLOGY ORDERA BARRETT Final Result PATHOLOGY [facility] 3rd Floor [place], [place] [phone] * COLONOSCOPY (09/03/2020 11:22 AM CDT) Anatomical Region Laterality Modality Other Narrative Procedure Note Sandi Arvizu MD - 09/03/2020 11:22 AM CDT [facility] Patient Name: Kiko Cee Procedure [...] 1000 mcg folic acid, 200 mgselinium and 7888-0222 mg calcium. Exercise has been shownto be [...] screening purposes. Procedure Code(s): --- Professional --- 83270, Colonoscopy, flexible; diagnostic, including collection of specimen(s) by brushing or washing,when performed (separate procedure) Diagnosis Code(s): --- Professional --- Z12.11, Encounter for screening for malignantneoplasm of colon CPT copyright 2019 [employer]. All rights reserved. The codes documented in this report are preliminary and upon sewer reviewmay be revised to meet current compliance requirements. Electronically signed by Sandi Arvizu M.D. Sandi Arvizu M.D. 09/03/2020 11:54:59 AM Number of Addenda: 0 Note Initiated On: 09/03/2020 11:22 AM Sandi Arvizu MD ENDOSCOPY PROCEDURES Fi nal Result from Last 3 Months or Most Recently Relevant to Health Maintenance Insurance [facility] Care Teams Direct Chill Caster Relationship Specialty Start Date End Date Tammy Waite MD PCP - General Family Medicine 10/05/23 Sandi Arvizu MD Consulting Physician Gastroenterology 11/13/20
--- OUTSIDE RECORDS SUMMARY | 2024-09-11 16:49 | XMS_ITS | Encounter Summary ---
Author Organization [facility] Address [address] [facility] [place] [address] Phone Care Team Providers Care Checker/Stocker Name Role Phone Sandi Arvizu MD Unavailable [phone] Tammy Waite MD Primary Care Provider + [...] on file Legal Sex Female 9:12 AM CHIROPRACTIC CARE Gender Identity Not on file Sexual Orientation [...] on filedocumented in this encounter Care Teams Checker/Stocker Relationship Specialty Start Date End Date Tammy Waite MD PCP - General Family Medicine 10/05/23 Sandi Arvizu MD Consulting Physician Gastroenterology 11/13/20 documented as of this encounter
--- OUTSIDE RECORDS SUMMARY | 2024-09-11 16:49 | XMS_ITS | Clinical Summary ---
Author Organization [facility] Address [address] [place] [address] Care Team Providers Care Bilingual Receptionist Name Role Phone Sandi Arvizu MD Unavailable [phone] Tammy Waite MD Primary Care Provider + Allergies Active Allergy Reactions Criticality Noted Date Comments Erythromycin Diarrhea,Stomach upset Low 12/29/2019 Medications triamterene-hyd roCHLOROthiazid e (triamterene-hy droCHLOROthiazi de) 37.5-25 mg per tablet/capsuleI ndications:swel ling Take 2 tablet/capsule by mouth nightly Active UNABLE TO FINDIndications :supplement Take 6 each by mouth transit operator before breakfast Super Collagen Active cholecalciferol (VITAMIN [...] (10/14/2020): Added automatically from request for surgery [id number] Assessment & Plan (11/27/2020 7:20 PM CDT): [...] (08/28/2020): Added automatically from request for surgery [id number] 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 [...] Department Care Team Description 08/22/2024 3:10 PM BUNCH MAKER Clinical Support [facility] Allergy and Immunology [address] [place] [phone] Allergic rhinitis due to animal (cat) (dog) hair and dander; Allergic rhinitis due to dust mite; Seasonal allergic rhinitis due to pollen 07/25/2024 3:10 PM BUNCH MAKER Clinical Support [facility] Allergy and Immunology [address] [place] [phone] Allergic rhinitis due to animal (cat) (dog) hair and dander; Allergic rhinitis due to dust mite; Seasonal allergic rhinitis due to pollen 06/28/2024 2:45 PM BUNCH MAKER Office Visit [facility] Allergy and Immunology [address] [place] [phone] Dy, Deann Magallanes MD Allergic rhinitis due to dust mite (Primary Dx); Seasonal allergic rhinitis due to pollen; Allergic rhinitis due to animal (cat) (dog) hair and dander; Intermittent asthma without complication, unspecified asthma severity; Facial dermatitis 06/28/2024 2:30 PM BUNCH MAKER Clinical Support [facility] Allergy and Immunology [address] [place] [phone] Allergic rhinitis due to animal (cat) (dog) [...] on file Legal Sex Female 9:12 AM BUNCH MAKER Gender Identity Not on file Sexual Orientation Not on file Obstetrics History Para Term AB IAB SAB Ectopic Multiple Livin g Live Births 2 2 2 0 0 2 Date Outcome GA Total Labor Labor/2nd/3rd Weight Sex Type Anes PTL Susy A1 A5 Name Clin Term Term Last Filed Vital Signs Vital Sign Reading Time Taken Comments Blood Pressure 155/90 06/28/2024 2:29 PM BUNCH MAKER Pulse 74 06/28/2024 2:29 PM BUNCH MAKER Temperature 36.9 C (98.4 F) 06/28/2024 2:29 PM BUNCH MAKER Respiratory Rate 19 06/28/2024 2:29 PM BUNCH MAKER Oxygen Saturation 99% 06/28/2024 2:29 PM BUNCH MAKER Inhaled Oxygen Concentration - - Weight 83.9 kg (185 lb) 06/28/2024 2:29 PM BUNCH MAKER Height 167.6 cm (5' 6 ) 06/28/2024 2:29 PM BUNCH MAKER Body Mass Index 29.86 06/28/2024 2:29 PM BUNCH MAKER Plan of Treatment Health Maintenance Due Date [...] 09/03/2020 Colon Cancer Screening-DNA Stool Discontinued 09/04/19 Colon Cancer Screening-FIT Discontinued 09/03/2020 Colon Cancer [...] CDT 02/12/2023 4:29 PM CDT Narrative PATHOLOGY [facility] - 02/18/2023 2:30 PM CDT 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 Its performance characteristics were determined by [facility] in a manner consistent with CLIA requirements. This test has not been cleared or approved by the U.S. Food and Drug Administration. Test Performed by: [address] [address] Flexo Operator: Antonio Hanley M.D. Ph.D.; CLIA# [id number] This specimen has been rescreened in accordance with this laboratory's Sports Specialist Program. [facility]/02/18/2023 14:30 Ofelia Zhu MS, CT (ASCP) Report Electronically Reviewed and Signed Out By MADDY Pierec(ASC) 02/18/2023 14:30:44 Cervicovaginal Cytology (Pap Test) Disclaimer: The Pap test is a screening test used to detect cervical cancer and its precursors; it is not a diagnostic procedure. False negative and false positive results do occur. Pap test results should be interpreted in the context of pertinent clinical information and biopsy results as indicated. [facility] Clinical Laboratory Improvement Amendments (CLIA) mandate that cytologic and histologic results be correlated for laboratory quality assurance intern & improvement standards. FOR ALL HIGH-GRADE CASES [...] determined by the Surgical Pathology Department at [facility] as part of an ongoing quality control associate program and in compliance with federally mandated [...] determined by the Surgical Pathology Department of [facility]. It has not been cleared or approved by the U. S. Food and Drug Administration. Baylee Gibbs MD LAB CYTOLOGY ORDERA BLES Final Result PATHOLOGY [facility] 3rd Floor [place], [place] [phone] * COLONOSCOPY (09/03/2020 11:22 AM CDT) Anatomical Region Laterality Modality Other Narrative Procedure Note Sandi Arvizu MD - 09/03/2020 11:22 AM CDT [facility] Endoscopy Lab Patient Name: Kiko Cee Procedure Date: 09/03/2020 11:22 AM Date of : 1965 Admit Type: Outpatient Age: 55 Gender: Female Note Status: Finalized Attending MD: Sandi Arvizu M.D. Procedure Date: 09/03/2020 Procedure: Colonoscopy Indications: Screening for colorectal malignant neoplasm, Thisis the patient's first colonoscopy Providers: Sandi Arvizu M.D., Aristides Nichols M.D. (Anesthesia Staff), Karol Garcia, FRANCY Referring MD: Margarita Walker MD Medicines: Monitored [...] 1000 mcg folic acid, 200 mgselinium and 8090-7723 mg calcium. Exercise has been shownto be [...] screening purposes. Procedure Code(s): --- Professional --- 72478, Colonoscopy, flexible; diagnostic, including collection of specimen(s) by brushing or washing,when performed (separate procedure) Diagnosis Code(s): --- Professional --- Z12.11, Encounter for screening for malignantneoplasm of colon CPT copyright 2019 [employer]. All rights reserved. The codes documented in this report are preliminary and upon shopfitter reviewmay be revised to meet current compliance requirements. Electronically signed by Sandi Arvizu M.D. Sandi Arvizu M.D. 09/03/2020 11:54:59 AM Number of Addenda: 0 Note Initiated On: 09/03/2020 11:22 AM Sandi Arvizu MD ENDOSCOPY PROCEDURES Fi nal Result from Last 3 Months or Most Recently Relevant to Health Maintenance Insurance [facility] Care Teams Bilingual Receptionist Relationship Specialty Start Date End Date Tammy Waite MD PCP - General Family Medicine 10/05/23 Sandi Arvizu MD Consulting Physician Gastroenterology 11/13/20
--- OUTSIDE RECORDS SUMMARY | 2024-09-11 16:49 | XMS_ITS ---
Author Organization 1 OF Arline murray [facility] Address [address] [facility] [address] [place] [address] Care Team Providers Care Barrel Lathe Operator Outside Name Role Phone Jim Waite M.D. Primary Care Provider Tyrell Douglas Unavailable [phone] Allergies Allergen (clinical drug ingredient) Drug/Non Drug [...] Date Provider Diagnosis 1 OF Arline Rushing [facility] [address] [address] 07/09/2023 Tyrell Stearns Acquired hallux valgus, right [...] * Florecita RUSHING RDOB:[birth year] (58 yo F)Acc No.[id number]:07/09/2023 Progress Notes Patient: Asa Florecita LIANG Provider: Paola Stearns DPM :1965 A ge:58 Y S ex:Female Date:07/09/2023 Address:[facility] Pcp:Jim Waite M.D. Subjective: * Chief Complaints: [...] Up: a fter sx * Images: * OND SIZER AND SORTER Sign off status: Completed true * Provider: Paola Stearns DPM Date: 0 07/09/2023 Generated for Rasta hawley/Sulema/Jo-Ann on: 0 09/11/2024 04:49 PM CDT History [...] first MTPJ with negligible edema. Shoes today: Linguastat shoes Exam unchanged from prior visit: Constitutional / Appearance: No acute di stress , Well nourished, Appropriate personal hygiene
--- OUTSIDE RECORDS SUMMARY | 2024-09-11 16:49 | XMS_ITS | Clinical Summary ---
Author Organization [facility] Summer [facility]hunter Address [address] [place] [address] Care Team Providers Care Cotton Bag Sewer Name Role Phone Tammy Waite MD Primary [...] at bedtime. Active iron/folic ac/vit Bcomp,C/min (B [id number] E-FA ORAL) Take by mouth daily. Active cetirizine (ZyrTEC) 10 mg tablet Take 20 mg by mouth daily. Active montelukast (SINGULAIR) 10 mg tablet Take 10 mg by mouth daily. 09/17/2023 09/17/19 Active Active Problems No known active problems Encounters Date Type Department Care Team Description 09/06/2024 External Device Data ST[facility] ABSTRACTION Provider, Abstract 08/29/2024 External Device Data [facility] ABSTRACTION Provider, Abstract 08/29/2024 External Device Data [place] ABSTRACTION Provider, Abstract 08/26/2024 External Device Data ST[place] ABSTRACTION Provider, Abstract 08/25/2024 External Device Data [place] ABSTRACTION Provider, Abstract 08/22/2024 External Device Data ST[place] ABSTRACTION Provider, Abstract 08/14/2024 3:30 PM AUTOMATION AND CONTROLS INSTRUCTOR Office Visit [facility] Oncology and Hematology - [address] [place] [phone] Esdras Andres MD Leukopenia, unspecified type (Primary [...] on file Legal Sex Female 11:30 AM AUTOMATION AND CONTROLS INSTRUCTOR Gender Identity Not on file Sexual Orientation Not on file Last Filed Vital Signs Vital Sign Reading Time Taken Comments Blood Pressure 137/81 08/14/2024 3:35 PM AUTOMATION AND CONTROLS INSTRUCTOR Pulse 67 08/14/2024 3:35 PM AUTOMATION AND CONTROLS INSTRUCTOR Temperature 36.6 C (97.9 F) 08/14/2024 3:35 PM AUTOMATION AND CONTROLS INSTRUCTOR Respiratory Rate 17 08/14/2024 3:35 PM AUTOMATION AND CONTROLS INSTRUCTOR Oxygen Saturation 96% 08/14/2024 3:35 PM AUTOMATION AND CONTROLS INSTRUCTOR Inhaled Oxygen Concentration - - Weight 84.9 kg (187 lb 3.2 oz) 08/14/2024 3:35 P M AUTOMATION AND CONTROLS INSTRUCTOR Height 167.6 cm (5' 6 ) 06/29/2023 2:37 PM AUTOMATION AND CONTROLS INSTRUCTOR Body Mass Index 30.21 06/29/2023 2:37 PM AUTOMATION AND CONTROLS INSTRUCTOR Plan of Treatment Health Maintenance Due Date Last Done Comments Pre-Diabetes and Diabetes Screening 1965 DTAP/TDAP/TD VACCINES (1 - Tdap) 1986 HEPATITIS B VACCINES (1 of 3 - 19+ 3-dose series) 1986 BREAST CANCER SCREENING 2007 FIT-DNA Q 3 years 2012 FIT/FOBT Q 1 year 2012 Flex Sig/CT Colonography Q 5 years 2012 ZOSTER VACCINE (1 of 2) 2017 INFLUENZA VACCINE (#1) 2024 PAP SMEAR 02/12/2026 02/12/2023 COLORECTAL SCREENING 09/03/2030 09/03/2020, 09/04/19 21 Colorectal Cancer Screening 09/03/2030 Insurance [facility] [id number] MEDICAID [place] Care Teams Cotton Bag Sewer Relationship Specialty Start Date End Date Tammy Waite MD [address] [facility][Note 2] [address] [address] PCP - General Family Practice 06/29/23
== END 2024-09-11 14:30 | disposition home or self-care (01) ==
LOC: ANHIMG 14:33
PROVIDERS: PCP Family Medicine; Visit Provider Family Medicine
DX: Z12.31 Encounter for screening mammogram for malignant neoplasm of breast (principal)
CPT/HCPCS: 77063; 77067